=== PATIENT | male | born 1960 | race Caucasian/White ===

== ENCOUNTER → 2016-12-05 | Outpatient (CLI) | payer BC ==
[~2016-12-05] MED LIST: ACP20 PO; ASPI325T45 PO; BNC/20125 PO; BUPR-79 PO; BUPRTAB51 PO; METO25TA3 PO; MIRT45TA3 PO; NRN/600 PO; OXYC-57 PO; OXYSR/10 PO; POTA8CAP6 PO; ROSU40TA PO; SERT-234 PO
--- NOTE | 2016-12-05 14:32 | ECHOCARDIOGRAM REPORT ---
*NOTICE TO RECEIVING CONSTITUTION PARTY AGENCY This information is strictly Confidential and protected under [place] law. [place] law prohibits you from making any further disclosure of this information unless further disclosure is expressly permitted by the written consent of the person to whom it pertains or is authorized by law. A general authorization for the release of medical or other information is not sufficient for this purpose. Hospital accepts no responsibility if the information is made available to any other person, INCLUDING THE PATIENT. Interpretation Summary * Name: TEN HO Study Date: 12/05/2016 07:51 AM BP: 134/77 mmHg * Patient Location: Cardiopulmonary Lab HR: 66 * : 1960 (M/d/yyyy) Gender: Male Height: 77 in * Age: 56 yrs Ethnicity: CA Weight: 295 lb * Ordering Physician: Stanley Batista * Referring Physician: Stanley Batista * Performed By: Halley Baum RCS * * Reason For Study: Abnormal Cardiovascular Study, HTN * BSA: 2.6 m2 * -- Conclusions -- * 1. Normal left ventricular size systolic function. EF 60 -65%. No regional wall motion abnormalities. Mild concentric left ventricular hypertrophy. Type 1 diastolic dysfunction. * 2. No significant valvular abnormalities visualized. * 3. No prior study available for comparison. Procedure Details * A complete two-dimensional transthoracic echocardiogram was performed (2D, M-mode, Doppler and color flow Doppler). * Patient supine for imagining Left Ventricle * Normal left ventricular size systolic function. EF 60 -65%. No regional wall motion abnormalities. Mild concentric left ventricular hypertrophy. Type 1 diastolic dysfunction. Right Ventricle * The right ventricle is normal in size and function. * The right ventricular systolic function is normal as assessed by tricuspid annular plane systolic excursion (TAPSE) (normal >1.5 cm). Atria * The left atrial size is normal. * Right atrial size is normal. * There is no evidence of atrial septal defect, but resolution does not allow assessment for a patent foramen ovale. Mitral Valve * The mitral valve is grossly normal. * There is no mitral valve stenosis. * There is trace mitral regurgitation. Tricuspid Valve * The tricuspid valve is not well visualized. * There is no tricuspid stenosis. * Significant tricuspid regurgitation is absent. Aortic Valve * The aortic valve is trileaflet. * No hemodynamically significant valvular aortic stenosis. * There is no significant aortic regurgitation. Pulmonic Valve * The pulmonary valve is inadequately visualized, but the Doppler data is adequate for interpretation. * There is no pulmonic valvular stenosis. * There is no significant pulmonary regurgitation. Great Vessels * The aortic root is normal size. * Ascending aorta of normal dimension Pericardium/Pleural * There is no pericardial effusion. Great Vessels * IVC normal in size. MMode 2D Measurements and Calculations IVSd 1.2 cm IVSs 1.3 cm LVIDd 5.1 cm LVIDs 3.6 cm LVPWd 1.2 cm LVPWs 1.5 cm IVS/LVPW 1.1 FS 29.7 % EDV(Teich) 125.9 ml ESV(Teich) 54.9 ml EF(Teich) 56.4 % EDV(cubed) 135.6 ml ESV(cubed) 47.2 ml EF(cubed) 65.2 % % IVS thick 7.3 % % LVPW thick 28.5 % LV mass(C)d 244.1 grams LV mass(C)dI 92.5 grams/m\S\2 LV mass(C)s 183.1 grams LV mass(C)sI 69.4 grams/m\S\2 CO(Teich) 4.6 l/min CI(Teich) 1.7 l/min/m\S\2 SV(Teich) 71.0 ml SI(Teich) 26.9 ml/m\S\2 CO(cubed) 5.7 l/min CI(cubed) 2.2 l/min/m\S\2 SV(cubed) 88.4 ml SI(cubed) 33.5 ml/m\S\2 Ao root diam 3.7 cm Ao root area 10.6 cm\S\2 ACS 2.1 cm LA dimension 4.0 cm asc Aorta Diam 2.8 cm LA/Ao 1.1 LVAd ap4 34.4 cm\S\2 LVLd ap4 9.0 cm EDV(MOD-sp4) 108.0 ml LVAs ap4 18.1 cm\S\2 LVLs ap4 7.2 cm ESV(MOD-sp4) 38.0 ml EF(MOD-sp4) 64.8 % LVAd ap2 41.4 cm\S\2 LVLd ap2 10.0 cm EDV(MOD-sp2) 142.0 ml LVAs ap2 22.6 cm\S\2 LVLs ap2 7.7 cm ESV(MOD-sp2) 55.0 ml EF(MOD-sp2) 61.3 % CO(MOD-sp4) 4.6 l/min CI(MOD-sp4) 1.7 l/min/m\S\2 SV(MOD-sp4) 70.0 ml SI(MOD-sp4) 26.5 ml/m\S\2 CO(MOD-sp2) 5.7 l/min CI(MOD-sp2) 2.1 l/min/m\S\2 SV(MOD-sp2) 87.0 ml SI(MOD-sp2) 33.0 ml/m\S\2 Doppler Measurements and Calculations MV E max cliff 53.0 cm/sec MV A max cliff 54.2 cm/sec MV E/A 0.98 MV P1/2t max cliff 77.7 cm/sec MV P1/2t 48.3 msec MVA(P1/2t) 4.6 cm\S\2 MV dec slope 470.7 cm/sec\S\2 MV dec time 0.24 sec Ao V2 max 122.2 cm/sec Ao max PG 6.0 mmHg Ao max PG (full) 1.9 mmHg LV V1 max PG 4.1 mmHg LV V1 max 100.9 cm/sec TV E max cliff 58.9 cm/sec PA V2 max 127.6 cm/sec PA max PG 6.5 mmHg
== END ==
LOC: C.NUCL 07:04
PROVIDERS: ATTEND Internal Medicine Cardiovascular Disease
DX: R94.30 Abnormal result of cardiovascular function study, unspecified (principal); R07.9 Chest pain, unspecified; I10 Essential (primary) hypertension

== ENCOUNTER → 2016-12-06 | Outpatient (CLI) | payer BC ==
[~2016-12-06] MED LIST changes: +REGADENOSON 0.4 MG/5 ML SYR ONE
--- NOTE | 2016-12-06 19:46 | MYOCARDIAL PERFUSION SCAN ---
TIME: 19:21 p.m. ORDERING PHYSICIAN: Dr. Batista. PCP: Dr. English. PROCEDURE: 1. Myocardial perfusion study performed in multiple views/images. 2. Lexiscan pharmacologic stress ECG. INDICATIONS: 1. Chest pain. 2. Abnormal cardiovascular study. CONSENT: Informed written consent was obtained. PROCEDURAL DETAILS: For the stress portion of the study, Lexiscan 0.4 mg was intravenously administered over 10-15 seconds followed by a saline flush. This was followed by 31.9 mCi of technetium-99m Cardiolite injected intravenously at 13:37 p.m. on 12/06/2016. Thirty minutes following the injection, imaging of the heart was performed in multiple projections. For the rest portion of the study 10.8 mCi of technetium-99m Cardiolite was injected intravenously at 11:50 a.m. on the same day. One hour following the injection, imaging of the heart was performed in the same projections. STRESS ELECTROCARDIOGRAM: Baseline ECG demonstrated sinus rhythm at 79 beats per minute. Lexiscan ECG demonstrated no significant ST changes. There was no arrhythmia or significant pause. Dizziness and nausea was reported. No chest pain. Maximum heart rate was 116 beats per minute representing 70% maximum predicted heart rate. Resting blood pressure was 133/81 mmHg. Maximum blood pressure was 166/90 mmHg. FINDINGS: Rotating raw imaging demonstrated no significant motion artifact or lung uptake. The heart size appeared normal. Myocardial perfusion was normal without significant reversible or fixed defect to suggest ischemia or infarct. Ejection fraction was 65%. Normal wall motion was noted. No significant transient ischemic dilation. IMPRESSION: 1. Negative myocardial perfusion study for ischemia or infarct. 2. Normal left ventricular systolic function with an ejection fraction of 65%. 3. Normal wall motion. 4. No chest pain reported. 5. No arrhythmia. 6. Nondiagnostic Lexiscan electrocardiogram.
== END | disposition home or self-care (01) ==
LOC: C.NUCL 11:34
PROVIDERS: ATTEND Internal Medicine Cardiovascular Disease
DX: E78.5 Hyperlipidemia, unspecified (principal); I10 Essential (primary) hypertension; R07.9 Chest pain, unspecified; R94.30 Abnormal result of cardiovascular function study, unspecified

== ENCOUNTER → 2017-09-19 | Outpatient (CLI) | payer BC ==
[~2017-09-19] MED LIST changes: -REGADENOSON 0.4 MG/5 ML SYR ONE
[2017-09-19 18:03] LABS: BASO % 0.8 %; BASO ABS # 0.04 K/uL (0-0.2); EOS % 2.3 %; EOS ABS # 0.11 K/uL (0-0.5); HEMATOCRIT 43.8 % (42-52); HEMOGLOBIN 14.6 g/dL (14.0-18.0); IG# 0.01 K/uL (0.00-0.02); LYMPH % 31.6 %; LYMPH ABS # 1.53 K/uL (1.2-3.4); MEAN CORPUSCULAR HGB CONC 33.3 g/dl (32-36); MEAN PLATELET VOLUME 9.6 fL (7.4-10.4); MONO ABS # 0.58 K/uL (0.11-0.59); NEUT % 53.1 %; NEUT ABS # 2.57 K/uL (1.4-6.5); PLATELET COUNT 258 K/uL (130-400); RED CELL DISTRIBUTION WIDTH CV 13.3 % (11.5-14.5); RED CELL DISTRIBUTION WIDTH SD 45.1 fL (36.4-46.3); WHITE BLOOD COUNT 4.84 K/uL (4.8-10.8)
[2017-09-19 18:08] LABS: ALBUMIN 3.7 gm/dl (3.4-5.0); ALT/SGPT 37 U/L (12-78); AST/SGOT 25 U/L (15-37); BLOOD UREA NITROGEN 16 mg/dl (7-18); CALCIUM 9.3 mg/dl (8.5-10.1); CARBON DIOXIDE 29 mmol/L (21-32); CREATININE 1.09 mg/dl (0.60-1.40); GLUCOSE 99 mg/dl (70-99); POTASSIUM 4.4 mmol/L (3.5-5.1); SODIUM 135 mmol/L (136-145)
[2017-09-19 18:13] LABS: ALKALINE PHOSPHATASE 79 U/L (45-117); CHOLESTEROL 150 mg/dl (0-200); LDL CHOLESTEROL CALCULATED 81 mg/dl; TOTAL PROTEIN 8.1 gm/dl (6.4-8.2)
== END | disposition home or self-care (01) ==
LOC: C.LABMFLN 11:19
PROVIDERS: ATTEND Family Medicine
DX: R07.9 Chest pain, unspecified (principal); E78.5 Hyperlipidemia, unspecified; I10 Essential (primary) hypertension; K21.9 Gastro-esophageal reflux disease without esophagitis

== ENCOUNTER 2024-02-25 10:28 | Observation (INO) ==
--- NOTE | 2024-01-16 12:17 | PAT Medication Instructions ---
Medication Instructions Date of Service January 16, 2024 Home Medications Medication Instructions Recorded aspirin 325 mg tablet 325 mg PO BID #60 tabs 09/28/22 Auto Titrating CPAP See Rx Instructions .Route 04/11/23 .COMPLEX #1 ea omeprazole 40 mg capsule,delayed 40 mg PO QAM #90 caps 05/25/23 release amlodipine 10 mg tablet (Norvasc) 10 mg PO DAILY #90 tabs 09/24/23 etodolac 400 mg tablet (Lodine) 400 mg PO BID #60 tabs 09/24/23 furosemide 20 mg tablet (Lasix) 40 mg (2 x 20 mg) PO DAILY #180 09/24/23 tabs losartan 100 mg tablet 100 mg PO DAILY #90 tabs 09/24/23 mupirocin 2 % topical ointment 1 applic topical BID #15 grams 09/24/23 budesonide-formoterol HFA 80 2 puff inhalation BID #10.2 grams 10/31/23 mcg-4.5 mcg/actuation aerosol inhaler (Symbicort) bupropion HCl 100 mg tablet,12 hr 100 mg PO DAILY #30 ea 10/31/23 sustained-release (Wellbutrin SR) clindamycin HCl 150 mg capsule 150 mg PO QID #40 caps 10/31/23 gabapentin 600 mg tablet 600 mg PO QID #120 tabs 11/16/23 pramipexole 0.5 mg tablet See Rx Instructions PO DAILY #45 11/16/23 tabs paroxetine HCl 40 mg tablet (Paxil) 40 mg PO DAILY #30 tabs 12/17/23 pravastatin 20 mg tablet 20 mg PO QPM #90 tabs 12/17/23 Medication List: aspirin 325 mg tablet 325 mg PO BID omeprazole 40 mg capsule,delayed release 40 mg PO QAM amlodipine 10 mg tablet (Norvasc) 10 mg PO DAILY etodolac 400 mg tablet (Lodine) 400 mg PO BID furosemide 20 mg tablet (Lasix) 40 mg (2 x 20 mg) PO DAILY losartan 100 mg tablet 100 mg PO DAILY mupirocin 2 % topical ointment 1 applic topical BID budesonide-formoterol HFA 80 mcg-4.5 mcg/actuation aerosol inhaler (Symbicort) 2 puff inhalation BID bupropion HCl 100 mg tablet,12 hr sustained-release (Wellbutrin SR) 100 mg PO DAILY gabapentin 600 mg tablet 600 mg PO QID pramipexole 0.5 mg tablet See Rx Instructions PO DAILY paroxetine HCl 40 mg tablet (Paxil) 40 mg PO DAILY pravastatin 20 mg tablet 20 mg PO QPM MEDICATION INSTRUCTIONS: Continue as directed mupirocin 2 % topical ointment 1 applic topical BID (do not use near surgical area after bathing prior to surgery) budesonide-formoterol HFA 80 mcg-4.5 mcg/actuation aerosol inhaler (Symbicort) 2 puff inhalation BID ASK your surgeon for instructions etodolac 400 mg tablet (Lodine) 400 mg PO BID ASK your prescriber and surgeon aspirin 325 mg tablet 325 mg PO BID DO NOT take the morning of surgery furosemide 20 mg tablet (Lasix) 40 mg (2 x 20 mg) PO DAILY losartan 100 mg tablet 100 mg PO DAILY Take morning of surgery With a small sip of water, OTHERWISE NOTHING TO EAT OR DRINK AFTER MIDNIGHT: paroxetine HCl 40 mg tablet (Paxil) 40 mg PO DAILY bupropion HCl 100 mg tablet,12 hr sustained-release (Wellbutrin SR) 100 mg PO DAILY omeprazole 40 mg capsule,delayed release 40 mg PO QAM amlodipine 10 mg tablet (Norvasc) 10 mg PO DAILY gabapentin 600 mg tablet 600 mg PO QID Take evening before surgery pramipexole 0.5 mg tablet See Rx Instructions PO DAILY pravastatin 20 mg tablet 20 mg PO QPM gabapentin 600 mg tablet 600 mg PO QID Other Notes If you have any questions please call us at [phone] or [phone] or [phone] or [phone]
--- NOTE | 2024-01-29 09:59 | Anesthesiology Consultation ---
Date of Service January 29, 2024 Assessment & Plan (1) Encounter for pre-operative examination: - awaiting [place] PCP pre-operative evaluation and clearance. - dyspnea with all activity and peripheral edema for several years per patient- denied change or worsening in clinic today, mild pulmonary edema noted on CXR. I spoke with DIANE Pradhan at his [place] PCP office and they will contact patient for further evaluation/management. He will ultimately need a PCP clearance-surgeon's office made aware. - difficult intubation: severely limited cervical spine extension; s/p cervical spine surgery. - spinal cord stimulator: patient plans to bring remote to hospital DOS. - facial hair: patient was advised on shaving facial hair 24+ hours from surgery. Chart Review Chart Review: Pending: Refer to Additional Notes / Consult section and Patient seen in Pre Admission Testing Teaching & Discussion Pre-Anesthesia Teaching/Discussion Notes: Instructed NPO after midnight before surgery, except medications with 15 cc of water. Medication instructions provided according to the PAT guidelines. History Surgery Operation Date: 02/25/24 08:00 Proposed Procedures p Right Total Knee Arthroplasty - Felipe Zayas DO Height/Weight Height: 6 ft 5 in Weight: 161.8 kg Allergies Allergy/AdvReac Type Severity Reaction Status Date / Time chocolate flavor Allergy Unknown Blister Verified 01/11/24 08:57 fentanyl AdvReac Intermediate PATCH ONLY Verified 10/31/23 11:13 - GI UPSET sulfamethoxazole AdvReac Intermediate nausea, Verified 10/31/23 11:13 [From Bactrim] vomiting trimethoprim [From Bactrim] AdvReac Intermediate nausea, Verified 10/31/23 11:13 vomiting oxycodone AdvReac Unknown Blister Verified 01/11/24 08:57 Medications Home Medications Medication Instructions Recorded Confirmed Last Taken aspirin 325 mg tablet 325 mg PO BID #60 tabs 09/28/22 01/11/24 Unknown Auto Titrating CPAP See Rx Instructions .Route 04/11/23 01/11/24 Unknown .COMPLEX #1 ea omeprazole 40 mg capsule,delayed 40 mg PO QAM #90 caps 05/25/23 01/11/24 Unknown release amlodipine 10 mg tablet (Norvasc) 10 mg PO DAILY #90 tabs 09/24/23 01/11/24 Unknown etodolac 400 mg tablet (Lodine) 400 mg PO BID #60 tabs 09/24/23 01/11/24 Unknown furosemide 20 mg tablet (Lasix) 40 mg (2 x 20 mg) PO DAILY #180 09/24/23 01/11/24 Unknown tabs losartan 100 mg tablet 100 mg PO DAILY #90 tabs 09/24/23 01/11/24 Unknown mupirocin 2 % topical ointment 1 applic topical BID #15 grams 09/24/23 01/11/24 Unknown budesonide-formoterol HFA 80 2 puff inhalation BID #10.2 grams 10/31/23 01/11/24 Unknown mcg-4.5 mcg/actuation aerosol inhaler (Symbicort) bupropion HCl 100 mg tablet,12 hr 100 mg PO DAILY #30 ea 10/31/23 01/11/24 Unknown sustained-release (Wellbutrin SR) pramipexole 0.5 mg tablet See Rx Instructions PO DAILY #45 11/16/23 01/11/24 Unknown tabs paroxetine HCl 40 mg tablet (Paxil) 40 mg PO DAILY #30 tabs 12/17/23 01/11/24 Unknown pravastatin 20 mg tablet 20 mg PO QPM #90 tabs 12/17/23 01/11/24 Unknown gabapentin 600 mg tablet 600 mg PO QID #120 tabs 01/16/24 Unknown Past Medical History Medical History (Updated 01/29/24 @ 10:03 by Karin Katz PA-C) Anxiety Cervical disc disease Chronic pain Depression Diverticular disease denies h/o diverticulitis Edema BLE- mild -denies change or worsening Elevated blood sugar Per PCP records GERD (gastroesophageal reflux disease) controlled, stable per pt History of COVID-19 (2020) hospitalized at [facility], low spo2, on O2 History of kidney stones (~2020) History of stomach ulcers (~2008) HTN (hypertension) controlled, stable per pt Hx of syncope (~2019) hx "yrs ago"--hypotension r/t change in BP meds; denies recurrence since adjustment Hyperlipidemia Lung nodules pt not aware if still present Migraine Mucus plug in respiratory tract (10/2023) hx per pt - reason for symbicort inhaler, no longer uses Osteoarthritis of both knees Palpitations History of- occasional w/ too much caffeine Holter monitor studies in past wnl. used to follow with [facility] cardiology but d/c from service > 2 years ago Restless leg Rheumatoid arthritis Sleep apnea CPAP-compliant SOBOE (shortness of breath on exertion) with any activity per patient ongoing 5-6 years-denies change or worsening Spinal cord stimulator status Thyroid nodule denies Patient denies h/o stroke, seizures, heart attack, heart failure, blood clots/DVTs or blood transfusions. Exercise / Class Metabolic Activity III < 4 Walking/Shop/Light housework (dyspnea with activities ongoing x 5-6 years-denies change or worsening-denies chest discomfort) Past Family History Family History Mother Ovarian cancer Anxiety Cancer Brother Drug abuse Other No family history of adverse response to anesthesia Denies family history of Prostate cancer Myocardial infarction Breast cancer Colorectal cancer Past Surgical History Surgical History (Updated 01/29/24 @ 10:05 by Karin Katz PA-C) History of arthroscopy of left knee History of back surgery lumbar, X7 History of carpal tunnel release of both wrists History of cholecystectomy History of colonoscopy History of esophagogastroduodenoscopy (EGD) with esophageal dilatation-patient reports resolution of dysphagia History of hernia surgery History of toe surgery Left great toe x 2 Hx of cervical spine surgery unsure of level, limited ROM, left/right Hx of knee surgery X6 - 4 ON RIGHT AND 2 ON LEFT Hx of thumb surgery leftX4 S/P insertion of spinal cord stimulator Past Anesthesia History No Hx of Anesthesia Complications and No Family Hx of Anesthesia Complications History of PONV No Hx of PONV and No Hx of Motion Sickness Social History Smoking Status: Never smoker Do You Dip or Chew Tobacco: No Hx Alcohol Use: Yes Alcohol type: beer alcohol intake frequency: a few times a month Hx Substance Use: No substance use type: does not use Review of Systems Patient denies chest pain, fever, chills, cough, wheezing, or palpitations. Physical Exam Vital Signs Vitals BP 129/84 P 73 TEMP 98.5 SP02 96% on RA RESP 18 Physical Patient resting comfortably in chair in no acute distress, alert and oriented, responding appropriately throughout visit Severe limited cervical extension range of motion without pain TMD < 3.5 finger breadths Mallampati Score 3 Dentition: intact, denies chipped or loose teeth, caps/crowns, implants or bridges Lungs: normal respiratory effort. Good air movement, clear throughout to auscultation, no adventitious breath sounds Cardiac: regular rate and rhythm, no murmurs noted Carotid arteries: negative bruit bilat Lab Results Anesthesia Preop Results Results Anesthesia Widget: WBC 5.33 K/ul (4.8-10.8) 01/29/24 Hgb 13.6 g/dl (14.0-18.0) L 01/29/24 Hct 40.3 % (42.0-52.0) L 01/29/24 Plt 286 K/uL (130-400) 01/29/24 Na 141 mmol/L (136-145) 01/29/24 K 4.1 mmol/L (3.5-5.1) 01/29/24 Cl 105 mmol/L (98-107) 01/29/24 CO2 29 mmol/L (21-32) 01/29/24 BUN 20 mg/dl (6-23) 01/29/24 Creat 0.97 mg/dl (0.6-1.4) 01/29/24 Glucose Level 94 mg/dl (70-99(Fasting)) 01/29/24 PT 10.4 Seconds (9.0-12.0) 01/29/24 PTT 26 Seconds (21-31) 01/29/24 INR 1.0 (0.9-1.1) 01/29/24 Blood Type A Positive 01/29/24 Antibody Screen NEGATIVE 01/29/24 Testing Electrocardiogram Date: 01/29/24 NSR, rate 72 bpm Chest X-Ray Date: 01/29/24 Cardiomegaly and mild pulmonary edema. Echocardiogram Date: 05/08/19 EF 65% No LV segmental wall motion abnormalities Borderline cLVH No significant valvular disease is present Stress Test Date: 07/09/20 Dobutamine Negative dobutamine stress echo and EKG for ischemia MPHR 85% EF 60-65% Normal LV wall motion Grade I diastolic dysfunction
--- NOTE | 2024-02-13 07:23 | History & Physical Report ---
Date of Service February 13, 2024 Assessment & Plan (1) Osteoarthritis of right knee: We will proceed with a right total knee arthroplasty. Postoperatively he will be started on aspirin for DVT prophylaxis and kept overnight in the hospital for postop medical management. He plans to go to [facility] upon discharge. History of Present Illness Chief Complaint: Osteoarthritis of the right knee. Primary Care Provider: Jacobo EnglishDO Corona is a pleasant 63-year-old male who has been dealing with a chronic increasing bilateral knee pain. He has been really struggling with his knees over the past few years. He has had multiple arthroscopies on each knee. He has been treated by Dr. Coto with [facility]. Unfortunately, his knee pain is not getting better. He is very limited now because of his knees. He has trouble driving. He has trouble getting in and out of a car, even getting into bed at night. After failing conservative treatment, he has elected proceed with a right total knee arthroplasty. Allergies Allergy/AdvReac Type Severity Reaction Status Date / Time chocolate flavor Allergy Unknown Blister Verified 02/12/24 11:24 fentanyl AdvReac Intermediate PATCH ONLY Verified 02/12/24 11:24 - GI UPSET sulfamethoxazole AdvReac Intermediate nausea, Verified 02/12/24 11:24 [From Bactrim] vomiting trimethoprim [From Bactrim] AdvReac Intermediate nausea, Verified 02/12/24 11:24 vomiting oxycodone AdvReac Unknown Blister Verified 02/12/24 11:24 Home Medications Medication Instructions Recorded Confirmed Type Auto Titrating CPAP See Rx Instructions .Route 04/11/23 02/12/24 Rx .COMPLEX #1 ea omeprazole 40 mg capsule,delayed 40 mg PO QAM #90 caps 05/25/23 02/12/24 Rx release amlodipine 10 mg tablet (Norvasc) 10 mg PO DAILY #90 tabs 09/24/23 02/12/24 Rx etodolac 400 mg tablet (Lodine) 400 mg PO BID #60 tabs 09/24/23 02/12/24 Rx furosemide 20 mg tablet (Lasix) 40 mg (2 x 20 mg) PO DAILY #180 09/24/23 02/12/24 Rx tabs losartan 100 mg tablet 100 mg PO DAILY #90 tabs 09/24/23 02/12/24 Rx budesonide-formoterol HFA 80 2 puff inhalation BID #10.2 grams 10/31/23 02/12/24 Rx mcg-4.5 mcg/actuation aerosol inhaler (Symbicort) bupropion HCl 100 mg tablet,12 hr 100 mg PO DAILY #30 ea 10/31/23 02/12/24 Rx sustained-release (Wellbutrin SR) pramipexole 0.5 mg tablet See Rx Instructions PO DAILY #45 11/16/23 02/12/24 Rx tabs paroxetine HCl 40 mg tablet (Paxil) 40 mg PO DAILY #30 tabs 12/17/23 02/12/24 Rx pravastatin 20 mg tablet 20 mg PO QPM #90 tabs 12/17/23 02/12/24 Rx gabapentin 600 mg tablet 600 mg PO QID #120 tabs 01/16/24 02/12/24 Rx aspirin 325 mg tablet 325 mg PO ONCE 02/12/24 History magnesium PO DAILY 02/12/24 02/12/24 History potassium chloride PO DAILY 02/12/24 02/12/24 History Past Med/Surg History Problem List (Updated 02/13/24 @ 07:23 by Felipe Zayas DO) Osteoarthritis of right knee Myalgia Abnormal echocardiogram Cardiomegaly Osteoarthritis of knees, bilateral Internal nasal lesion Chronic pain of both knees Restless legs Bilateral shoulder pain Joint pain Edema Thyroid nodule Depression Palpitations with increased caffeine intake Bilateral hip pain Pulmonary nodules Elevated liver function tests Psychophysiologic insomnia Claudication of both lower extremities Spinal cord stimulator status Dyspnea Cervical disc disease (Chronic) 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) GERD without esophagitis (Chronic) Hyperlipidemia (Chronic) Migraine headache (Chronic) DOLORES on CPAP (Chronic) Obesity (Chronic) Encounter for pre-operative examination (Chronic) Hypertension Medical History Elevated blood sugar Per PCP records Restless leg Mucus plug in respiratory tract (10/2023) hx per pt - reason for symbicort inhaler, no longer uses Thyroid nodule denies Hx of syncope (~2019) hx "yrs ago"--hypotension r/t change in BP meds; denies recurrence since adjustment Spinal cord stimulator status History of COVID-19 (2020) hospitalized at [facility], low spo2, on O2 Palpitations History of- occasional w/ too much caffeine Holter monitor studies in past wnl. used to follow with [facility] cardiology but d/c from service > 2 years ago Osteoarthritis of both knees Migraine Lung nodules pt not aware if still present Hyperlipidemia GERD (gastroesophageal reflux disease) controlled, stable per pt Edema BLE- mild -denies change or worsening SOBOE (shortness of breath on exertion) with any activity per patient ongoing 5-6 years-denies change or worsening Cervical disc disease Chronic pain HTN (hypertension) controlled, stable per pt Rheumatoid arthritis History of kidney stones (~2020) Diverticular disease denies h/o diverticulitis History of stomach ulcers (~2008) Depression Anxiety Sleep apnea CPAP-compliant Surgical History History of arthroscopy of left knee History of toe surgery Left great toe x 2 History of hernia surgery S/P insertion of spinal cord stimulator Hx of thumb surgery leftX4 History of carpal tunnel release of both wrists Hx of knee surgery X6 - 4 ON RIGHT AND 2 ON LEFT Hx of cervical spine surgery unsure of level, limited ROM, left/right History of back surgery lumbar, X7 History of cholecystectomy History of esophagogastroduodenoscopy (EGD) with esophageal dilatation-patient reports resolution of dysphagia History of colonoscopy Family History Mother Ovarian cancer Anxiety Cancer Brother Drug abuse Other No family history of adverse response to anesthesia Denies family history of Prostate cancer Myocardial infarction Breast cancer Colorectal cancer Social History Smoking Status: Never smoker Second Hand Exposure: No; Do You Dip or Chew Tobacco: No; Hx Alcohol Use: Yes Alcohol type: beer Hx Substance Use: No Preferred Language: Thai Communication Ability: Effective Assistant Librarian Required: No Beliefs That Will Affect Care: None marital status: Current Living Situation: Spouse current occupational status: disabled How many Children do You have: 3 Feels Safe at Home: Yes Childhood Exposure to Second-Hand Smoke: Yes Diet: regular caffeine: Yes Dental Care, Regularly: Yes Physical Activity Frequency: Does not Exercise Seatbelt Use: sometimes Sunscreen Use: No Assistive Devices: CPAP and Glasses Review of Systems All systems reviewed & are unremarkable except as noted in HPI & below. Physical Exam On physical examination of the right knee, he has a slight varus deformity. He has tenderness palpation of the distal medial femoral condyle and over the medial joint line.. Constitutional WD/WN, vitals as above Eyes PERRL, conjunctivae normal, anicteric sclerae ENMT external ear and nose normal, oropharynx normal Neck trachea midline, no thyromegaly Respiratory normal respiratory effort Cardiovascular RRR, no murmur, no edema Gastrointestinal (Abdomen) normal bowel sounds, soft, nontender, no hepatosplenomegaly Psychiatric A+Ox3, euthymic affect Results & Data Results & Data Laboratory Results . Diagnostic Findings X-rays of the right knee show advanced medial compartmental arthritis with joint space narrowing, osteophyte formation, and [id number] articulation. PG Care Time/CCT Total # of Minutes Spent Total Time Spent with Patient: Total time spent is greater than 50% in coordination of care (as documented) at patient's floor/unit and/or counseling patient: Coding Level of Care Code None Diagnoses Osteoarthritis of right knee M17.11
[~2024-02-25 10:28] MED LIST changes: -ACP20 PO; -ASPI325T45 PO; -BNC/20125 PO; +BUPIVACAINE 0.5 % 5 MG/1 ML PF 10ML VIAL ONE; -BUPR-79 PO; -BUPRTAB51 PO; +LIDOCAINE 2% 2 ML VIAL/AMP(20MG/ML) INFIL ONE; -METO25TA3 PO; +MIDAZOLAM HCL 1 MG/ML 2ML VIAL ONE; -MIRT45TA3 PO; -NRN/600 PO; +ONDANSETRON INJ 2 MG/ML 2 ML VIAL ONE; -OXYC-57 PO; -OXYSR/10 PO; -POTA8CAP6 PO; +PROPOFOL IV EMULSION 10 MG/ML 20 ML VIAL IV ONE; +ROPIVACAINE 0.5% 5 MG/ML 30 ML VIAL ONE; -ROSU40TA PO; -SERT-234 PO
--- NOTE | 2024-02-25 10:42 | History & Physical Bridge Note ---
Date of Service February 25, 2024 History & Physical Bridge Note I have examined the patient, reviewed the History & Physical and in the interval since the performance of the History & Physical I have noted the following changes of clinical significance: no changes noted
[2024-02-25] MEDS ORDERED: ATROPINE SULFATE 0.1 MG/ML 10ML SYR IV PRN (11:18)
[2024-02-25] MEDS ORDERED: ePHEDrine sulfate 50 MG/ML AMP IV PRN (11:18)
[2024-02-25] MEDS ORDERED: fentaNYL citrate PF 100 MCG/2 ML VIAL IV PRN (11:18)
[2024-02-25] MEDS: LR 500ML BOLUS, THEN 15ML/HR IV SCH (11:27)
[2024-02-25] MEDS: GABAPENTIN 300 MG CAP PO SCH (11:27)
[2024-02-25] MEDS: dexAMETHasone**PF** 10 MG/ML VIAL IV SCH (11:28)
[2024-02-25] MEDS: ACETAMINOPHEN 500 MG TAB PO SCH ×2 (11:28→15:29)
[2024-02-25] MEDS: FAMOTIDINE 20 MG TAB PO SCH (11:28)
[2024-02-25] MEDS: LR 60ML/HR IV SCH (11:28)
[2024-02-25] MEDS: TRANEXAMIC ACID 1,000 MG **IV Pre-op IV SCH (11:43)
[2024-02-25] MEDS: ceFAZolin 3000MG 3,000 MG/72.5 ML BAG IV SCH (11:53)
[2024-02-25] MEDS ORDERED: fentaNYL citrate PF 100 MCG/2 ML VIAL ONE (11:57)
[2024-02-25] MEDS ORDERED: KETAMINE HCL 10MG/ML SYR ONE (12:06)
[2024-02-25] MEDS ORDERED: HYDROmorphone INJ 2 MG/ML SYR/VIAL ONE (12:17)
[2024-02-25] MEDS: ROPIV 0.5% 246mg, Ketorolac 30mg, EPINEPHrine 0.5mg in NSS INFIL SCH (12:34)
[2024-02-25] MEDS: ORTHO JOINT ANESTHETIC ONE (12:34)
[2024-02-25] MEDS: TRANEXAMIC ACID 1,000 MG **IV Intra-op IV SCH (12:52)
[2024-02-25] MEDS ORDERED: DEXAMETHASONE SOD INJ 4 MG/ML VIAL ONE (13:01)
--- NOTE | 2024-02-25 13:50 | Operative Report ---
PG Post Operative Report Pre & Post Diagnosis Operation Date: 02/25/24 12:00 Pre-Op Diagnosis: Right Knee Osteoarthritis Post-Op Diagnosis: Right Knee Osteoarthritis I identified the patient and participated in the time-out.: Yes Procedure Operation Date: 02/25/24 12:00 Actual Procedures p Right Total Knee Arthroplasty(Right) - Felipe Zayas DO Surgeon Felipe Zayas DO Process Improvement Manager Felipe Samuel PA-C Estimated Blood Loss 30 Findings Consistent with Post-Op Diagnosis Specimens Right femoral and tibial bone Description of Procedure Implants used: I used a Alexx Persona total knee arthroplasty system with a size 11 PS femur, F tibia, 31 oval patella, and a size 12 CPS polyethylene bearing. All components were cemented in place with Biomet cement. Anuel arrived [facility] for the above procedure. He was seen in the preoperative holding area and the operative extremity was identified and signed. He was given a preoperative antibiotic, TXA, a spinal anesthetic and an adductor nerve block. He was taken back to the operating room and laid on the table in supine position. He was given basic sedation. The operative knee was then prepped and draped in sterile fashion. A timeout was done, and the patient and the operative extremity was properly identified. A midline incision was made directly over the patella. Dissection was taken down to the extensor mechanism. A medial parapatellar arthrotomy was used. The medial retinaculum was released and the fat pad was mostly excised. The knee was flexed and the ACL, PCL, and meniscus were removed. A drill was sent down the center of the femoral canal followed by an intramedullary simeon. Off that simeon a distal femoral cutting block was placed. 9 mm was resected off the distal femur at 5 of valgus. A posterior referencing AP sizing guide was then placed on the distal femur. The femur measured to be a size 11. 2 drill holes were placed in 3 of external rotation. A 4-in-1 cutting block was then impacted into place. Anterior, posterior, and chamfer cuts were then made. The proximal tibia was then exposed. An external tibial alignment guide was placed. A tibial cut guide was then anchored in place and the proximal tibia was then resected. The posterior aspect of the knee was then opened up and any additional meniscus fragments and osteophytes were removed. The tibia measured to be a size F. The tibial plate was then placed in the appropriate rotation and the tibia was drilled and punched. Trial components were then placed. I used a size 12 CPS polyethylene insert. The knee was brought through a full range of motion and felt to be stable. The peg holes for the femoral component were then drilled. The patella was then everted and 9 mm was resected off the posterior aspect of the patella. The patella measured to be a size 31 oval. 3 peg holes were then drilled. A trial patella was placed. The knee was once again brought through a full range of motion and felt to be stable. Trial components were then removed. The surrounding soft tissues were injected with 100 cc of an orthopedic pain control cocktail. All components were then cemented into place with Biomet cement. The final polyethylene insert was then snapped into place. Once cement was dry the tourniquet was deflated. Hemostas is was obtained. A dilute betadyne lavage was then done for 3 minutes. The joint was then irrigated with normal saline solution. Medial parapatellar arthrotomy was then closed with #1 Vicryl suture. The skin was closed with 2-0 Vicryl, 3-0V lock suture, and jeremy. A soft compressive dressing was placed. He was then transferred to a hospital bed and taken to the postanesthesia care unit in stable condition. He tolerated the procedure well. Felipe Samuel PA-C, was present for the entire procedure. He was critical for patient positioning, prepping, draping, retraction exposure, wound closure and application of sterile dressing. I attest to the content of the Intraoperative Record and any orders documented therein. Any exceptions are noted below.
--- NOTE | 2024-02-25 14:07 | Anesthesiology Progress Note ---
Date of Service February 25, 2024 Anesthesia Post Procedure Vital Signs Vital Signs: Temp Pulse Pulse Resp BP BP Pulse Ox 02/25/24 14:00 94 H 15 97/61 L 94 02/25/24 13:50 101/62 02/25/24 13:50 83 14 83/57 L 94 02/25/24 13:41 98.1 F 85 19 97/54 L 90 02/25/24 11:11 97.9 F 74 18 120/69 95 O2 Del Method O2 Flow Rate 02/25/24 14:00 Nasal Cannula 2 02/25/24 13:50 02/25/24 13:50 Oxymask 15 02/25/24 13:41 Oxymask 15 02/25/24 11:11 Room Air Pain Intensity Right Knee: Pain Intensity: 5 Transfer of Care Handoff Completed per policy Notes Mental Status: alert / awake / arousable and participated in evaluation Patient Amnestic to Procedure: Yes Nausea / Vomiting: adequately controlled Pain: adequately controlled Airway Patency, RR, SpO2: stable & adequate BP & HR: stable & adequate Hydration State: stable & adequate Anesthetic Complications: no major complications apparent and Pt Satisfied with anesthetic care
[2024-02-25] MEDS: ONDANSETRON INJ 2 MG/ML 2 ML VIAL IV PRN ×2 (14:14→15:12)
[2024-02-25] MEDS ORDERED: HYDROmorphone INJ 0.5 MG/0.5 ML SYR IV PRN (14:55)
[2024-02-25] MEDS ORDERED: NALOXONE HCL 0.4 MG/1 ML VIAL/CARP IV PRN (14:55)
[2024-02-25] MEDS ORDERED: bisacodyL 10 MG SUPP PR PRN (14:55)
[2024-02-25] MEDS ORDERED: METOCLOPRAMIDE HCL INJ 5 MG/ML 2 ML VIAL IV PRN (14:55)
[2024-02-25] MEDS ORDERED: MAGNESIUM HYDROXIDE SUSP 30 ML UDC PO PRN (14:55)
[2024-02-25] MEDS ORDERED: NON-FORMULARY MEDICATION (Auto Titrating Cpap misc) SCH (14:55)
[2024-02-25] MEDS ORDERED: NON-FORMULARY MEDICATION (Potassium Chloride 1 TAB) PO PRN (14:55)
[2024-02-25] MEDS: SODIUM CHLORIDE 0.9% 1,000 ML IV SCH (14:59)
--- NOTE | 2024-02-25 15:16 | XRay Report ---
XR knee RT 1 or 2V routine HISTORY: 63 years-old Male Surgical Post Op right knee arthroplasty COMPARISON: 12/18/2023 TECHNIQUE: 2 views of the right knee FINDINGS: Total joint arthroplasty with patellar resurfacing. Anterior midline skin jeremy with expected posto perative soft tissue swelling and deep tissue air. No acute fracture or dislocation. IMPRESSION: Total joint arthroplasty with expected postoperative changes. ACT 112: Negative or not required by law. The above report was generated using voice recognition software. It may contain grammatical, syntax o r spelling errors. Electronically signed by: Marvel Jones M.D. 02/25/2024 3:14 PM
[2024-02-25] MEDS: KETOROLAC 30 MG/ML VIAL IV SCH (15:28)
[2024-02-25] MEDS: traMADol HCL 50 MG TABLET PO PRN (15:58)
[2024-02-25] MEDS: PRAMIPEXOLE DIHYDROCHLO 0.5 MG TAB PO SCH (16:10)
[2024-02-25] MEDS: ceFAZolin 2000MG 2,000 MG/15 ML SYR IV SCH (19:45)
[2024-02-25] MEDS: SENNA 8.6 MG TAB PO SCH (19:47)
[2024-02-25] MEDS: GABAPENTIN 600 MG TAB PO SCH (19:48)
[2024-02-25] MEDS: PRAVASTATIN SOD 20 MG TAB PO SCH (19:48)
[2024-02-25] MEDS: ASPIRIN 81 MG ECTAB PO SCH (19:49)
[2024-02-25] MEDS: DOCUSATE SODIUM 100 MG CAP PO SCH (19:49)
[2024-02-26 03:59] VITALS: RESP 18
--- NOTE | 2024-02-26 07:03 | Orthopedic Progress Note ---
Date of Service February 26, 2024 Assessment & Plan (1) Status post right knee replacement: Overall he is doing fairly well. He is not having much pain in the right knee. He will be seen by physical therapy today for ambulation and range of motion exercises. The nursing staff can change his dressing after physical therapy. He can be discharged home later today. He will follow-up orthopedics in 2 weeks. Nhung Agee was seen and examined at bedside this morning. Overall is doing fairly well. He is not having much pain in the right knee. He has been up and ambulating to the bathroom. He has no complaints.. Review of Systems All systems reviewed & are unremarkable except as noted in HPI & below. Physical Exam On physical examination of the right knee, the leg is out full extension. He has active dorsiflexion plantarflexion of the right ankle. The dressing is clean and dry.. Results & Data Results & Data Laboratory Results . Diagnostic Findings Postoperative x-rays of the right knee show the prosthesis to be in anatomic alignment without any evidence of fracture complication, or loosening.. PG Care Time/CCT Total # of Minutes Spent Total Time Spent with Patient: Total time spent is greater than 50% in coordination of care (as documented) at patient's floor/unit and/or counseling patient: Coding Level of Care Code 83157 Post Operative Follow-Up Diagnoses Status post right knee replacement Z96.651
--- NOTE | 2024-02-26 07:08 | Discharge Summary ---
Date of Service February 26, 2024 Admission HPI (Per Admitting) Cj is a pleasant 63-year-old male who has been dealing with a chronic increasing bilateral knee pain. He has been really struggling with his knees over the past few years. He has had multiple arthroscopies on each knee. He has been treated by Dr. Coto with [facility]. Unfortunately, his knee pain is not getting better. He is very limited now because of his knees. He has trouble driving. He has trouble getting in and out of a car, even getting into bed at night. After failing conservative treatment, he has elected proceed with a right total knee arthroplasty. Admission Exam (Per Admitting) On physical examination of the right knee, he has a slight varus deformity. He has tenderness palpation of the distal medial femoral condyle and over the medial joint line.. Principal Diagnosis Same as "Discharge Diagnosis" noted below under Discharge Instructions. Discharge Exam On physical examination of the right knee, the leg is out full extension. He has active dorsiflexion plantarflexion of the right ankle. The dressing is clean and dry.. Discharge Data Procedures Performed Operation Date: 02/25/24 12:00 Actual Procedures p Right Total Knee Arthroplasty(Right) - Felipe Zayas DO Ordered Studies 02/25/24 05:00 US - OR guided needle placemen Routine Hospital Course (1) Status post right knee replacement: On February 25, [address] [facility] and underwent a right knee replacement without complication. He had a spinal anesthetic. Postoperatively he was started on aspirin for DVT prophylaxis and transferred to the general orthopedic floors. His hospital course was uneventful. On postop day #1, his vital signs were stable and his pain was well-controlled. He was able to participate well with physical therapy doing ambulation and range of motion exercises. He was then discharged home. He will follow-up with orthopedics in 2 weeks. PG Care Time/CCT Total # of Minutes Spent Total Time Spent with Patient: Total time spent is greater than 50% in coordination of care (as documented) at patient's floor/unit and/or counseling patient: Discharge Plan Discharge Items Patient Disposition: Home - Self-Care Reason For Visit: Degenerative Joint Disease Right Knee Discharge Diagnosis: Status post right knee replacement Activity: Per Instructions section Non-emergency contact: Surgeon Call non-emergency contact if: your wound has increased redness and your wound has increased drainage Follow-up/Referrals: Jacobo English DO [Primary Care Provider] - Diet: Regular Addtl Attending Provider Instructions: Activity and Therapy Recommendations: * If you are using [facility] then therapy will be provided at your home until they feel you have accomplished all of your goals. * If you are using [facility] then Physical Therapy will be provided until they feel you are ready to start Outpatient Physical Therapy. * If you are not using home therapy then Outpatient Physical Therapy should start about 3-5 days from your day of surgery. Therapy will last about 6-10 weeks * It is important not to put a pillow under your knee when you are relaxing or sleeping. It is just as important to make sure you are getting your knee perfectly straight as it is to regain your knee bend. * You were shown a series of exercises in the hospital. Do these exercises three times each day including the exercises you were shown in physical therapy. * Get up and walk several times each day. For the first four weeks, try not to stand or walk for more than one hour at a time. If you do stand or walk for more than one hour, you will not hurt anything, but your leg will likely swell. * As you feel comfortable, you may change from the walker or crutches to a cane and then to independent walking. Medications: * Narcotic You will likely be sent home from the hospital with a prescription for the narcotic pain medication that worked best throughout your stay. * Cefadroxil -take the antibiotic twice a day for 10 days to help prevent infection. * Aspirin Most patients will be required to take Aspirin 81mg twice a day for 6 weeks after surgery. This is obtained [id number] and a prescription is not necessary. * Other medications may be prescribed for specific circumstances. If you have any questions, please call the office at . * Resume previous home medications unless otherwise instructed TEDs/Elastic Stockings: The white elastic stockings help limit swelling and prevent blood clots from forming in your legs.~ The more you wear them, the more they work. Wear them for six weeks. Dressing Care: The dressing can be changed after physical therapy on postop day #1. Daily dry dressing changes for a few days, especially if the incision is still draining some. If the incision is not draining then you may leave the jeremy open to air. If there is a little bit of drainage or if the jeremy are getting stuck on your clothing then cover the incision with a dry dressing. The jeremy will be removed at your 2 week follow-up appointment. Showering: You may shower 5 days from the day of surgery as long as the incision is no longer draining. You may shower with the jeremy exposed. Let soapy water run over the jeremy and pat them dry. Do not scrub or soak the incision. Things To Watch For: * Drainage from the incision site that occurs more than one week after your surgery. * Increased redness at the incision site. * Fever above 102 degrees Fahrenheit. * Unusual chest pain or shortness of breath. * Call [facility] at with any of the above problems Follow-Up Visit: Follow-up with Dr. Zayas's PA (Felipe Samuel) 2-3 weeks after your day of surgery. He will remove your jeremy and answer any questions. If you have any additional questions or concerns, Dr Zayas is usually in the office at the same time and will be available An appointment was probably scheduled when you signed-up for surgery in the office. If you have any questions call Office Instructions: More detailed instructions as well as Frequently Asked Questions were provided in a folder by our office when you signed-up for surgery. Please review these instructions when you get home. If you have any further questions or concerns, please feel free to call the office at [phone] Pending Studies at Discharge: No Stand-Alone Forms: My [facility] [employer], Smoking Cessation Medications and DC Order Prescriptions: New cefadroxil 500 mg capsule 500 mg PO BID 10 Days Qty: 20 0RF oxycodone 15 mg tablet 15 mg PO Q8H PRN (Reason: pain) Qty: 30 0RF aspirin 81 mg Tablet,Delayed Release (Dr/Ec) 81 mg PO BID 42 Days Qty: 0 0RF Continued omeprazole 40 mg capsule,delayed release(DR/EC) 40 mg PO QAM Qty: 90 3RF pramipexole 0.5 mg tablet See Rx Instructions PO DAILY Qty: 45 2RF Rx Instructions: 1/2 at supper and 1 tab hs orally daily; pravastatin 20 mg tablet 20 mg PO QPM Qty: 90 3RF Auto Titrating CPAP Misc See Rx Instructions .ROUTE .COMPLEX Qty: 1 0RF Rx Instructions: 8 to 18 cm of water, mask fit to patient comfort, heated humidification, compliance download capabilities, [place] Home patient amlodipine [Norvasc] 10 mg tablet 10 mg PO DAILY Qty: 90 3RF etodolac [Lodine] 400 mg tablet 400 mg PO BID Qty: 60 2RF furosemide [Lasix] 20 mg tablet 40 mg PO DAILY Qty: 180 3RF losartan 100 mg tablet 100 mg PO DAILY Qty: 90 3RF bupropion HCl [Wellbutrin SR] 100 mg tablet sustained-release 12 hr 100 mg PO DAILY Qty: 30 2RF magnesium 1 tab PO DAILY potassium chloride 1 tab PO DAILY PRN (Reason: Cramps) gabapentin 600 mg tablet 1,200 mg PO BID Discontinued aspirin 325 mg tablet 325 mg PO ONCE Discharge Orders: Discharge Order (Routine); Ordered 02/26/24 Ordered By: Felipe Zayas Admission Data Admit Date/Time: 02/25/24 13:43 Attending Provider: Felipe Zayas Admit Provider: Felipe Zayas Primary Care Provider: Jacobo English
[2024-02-26 07:32] VITALS: BP 123/68; PULSE 70; TEMP 97.7; O2SAT 97
[2024-02-26] MEDS: MULTIVITAMIN TAB PO SCH (08:07)
[2024-02-26] MEDS: FUROSEMIDE 40 MG TAB PO SCH (08:07)
[2024-02-26] MEDS: buPROPion SR 100 MG TABCR PO SCH (08:07)
[2024-02-26] MEDS: amLODIPine BESYLATE 5 MG TAB PO SCH (08:07)
[2024-02-26] MEDS: dexAMETHasone 4 MG TAB PO SCH (08:07)
[2024-02-26] MEDS: LOSARTAN POTASSIUM 50 MG TAB PO SCH (08:07)
[2024-02-26] MEDS ORDERED: MAGNESIUM OXIDE 400 MG TAB PO SCH (09:00)
[2024-02-26] MEDS: MAGNESIUM OXIDE 400 MG TAB PO SCH (09:35)
[2024-02-26] MEDS ORDERED: PRAMIPEXOLE DIHYDROCHLO 0.5 MG TAB PO SCH (21:00)
== END 2024-02-26 12:50 | disposition home or self-care (01) ==
LOC: ASU 10:28 → 3E 10:28

== ENCOUNTER 2024-05-19 09:07 | Observation (INO) ==
--- NOTE | 2024-05-13 10:42 | Anesthesiology Consultation ---
Date of Service May 13, 2024 Assessment & Plan (1) Encounter for pre-operative examination: Chart Review Chart Review: Acceptable Risk for Surgery and Patient NOT seen in Pre Admission Testing CARDIOLOGY NOTE PRIOR TO FIRST TKA Patient seen by cardio 02/22/24= seen for preop CV evaluation... doing well from CV standpoint. Admits to chronic stable BEARDEN which as not progressed (attributed to deconditioning and body habitus)... patient has been working on his deck for the past 3 weeks and he is able to walk with his usual degree of exertional dyspnea. His dyspnea resolves very quickly when he stops the activity. Patient has not experienced any angina pectoris or anginal equivalent symptoms, overt signs or symptoms of heart failure, nor has he had any symptoms suggestive of dysrhythmia. Reviewed 01/29/24 S ER visit and preop CXR 01/29/24. Reviewed recent ECHO- does show severe LVH, moderately dilated RV with normal systolic function. When compared to 2017 study- RV is more dilated and better visualized. .. discussed his LVH, his blood pressure appears to be controlled today, I have asked him to continue monitoring his blood pressure at home. His RV is most likely dilated due to his sleep apnea and body habitus, however he does have normal RV systolic function.Based on his stable exertional tolerance, stable chronic dyspnea on exertion, and normal LV systolic function on recent echo -- patient is an acceptable cardiac risk for his upcoming right TKA. Patient is aware that he should take his usual dose of Amlodipine 10 mg the morning of surgery with sips of water. He is aware to hold Losartan on the morning of surgery. There is no need for further ischemic evaluation at this time. Consults Requested none History Surgery Operation Date: 05/19/24 11:55 Proposed Procedures p Left Total Knee Arthroplasty - Felipe Zayas DO Height/Weight Height: 6 ft 5 in Weight: 158.757 kg Allergies Allergy/AdvReac Type Severity Reaction Status Date / Time fentanyl AdvReac Intermediate PATCH ONLY Verified 05/12/24 15:04 - GI UPSET sulfamethoxazole AdvReac Intermediate nausea, Verified 05/12/24 15:04 [From Bactrim] vomiting trimethoprim [From Bactrim] AdvReac Intermediate nausea, Verified 05/12/24 15:04 vomiting Medications Home Medications Medication Instructions Recorded Confirmed Last Taken Auto Titrating CPAP See Rx Instructions .Route 04/11/23 04/30/24 02/25/24 00:00 .COMPLEX #1 ea pravastatin 20 mg tablet 20 mg PO QPM #90 tabs 12/17/23 05/12/24 02/24/24 20:00 potassium chloride 1 tab PO DAILY PRN Cramps 02/12/24 05/12/24 02/21/24 gabapentin 600 mg tablet 1,200 mg (2 x 600 mg) PO BID #120 03/24/24 05/12/24 Unknown tabs magnesium 1 tab PO DAILY PRN muscle cramping 04/10/24 05/12/24 Unknown omeprazole 40 mg capsule,delayed 40 mg PO QAM #90 caps 04/15/24 05/12/24 Unknown release amlodipine 10 mg tablet (Norvasc) 10 mg PO QAM 05/12/24 05/12/24 Unknown aspirin 81 mg capsule 81 mg PO BID 05/12/24 05/12/24 Unknown losartan 100 mg tablet 100 mg PO QAM 05/12/24 05/12/24 Unknown mupirocin 2 % topical ointment 1 applic topical BID PRN Skin 05/12/24 05/12/24 Unknown Irritation pramipexole 0.5 mg tablet 1 mg PO HS 05/12/24 05/12/24 Unknown torsemide 10 mg tablet 20 mg PO QAM 05/12/24 05/12/24 Unknown Past Medical History Medical History Cardiomegaly f/u preop w/mn cardio 02/22/24 LVH (left ventricular hypertrophy) f/u preop w/mn cardio 02/22/24 Multiple allergies Rash and nonspecific skin eruption found to have blisters on his face, had recent allergy testing and will be completing further testing upcoming, "dr feels he may have an autoimmune diso rder, possibly lupus causing the rash and blisters on his face">as of 05/12/24, "face is clear currently" Seasonal rhinitis Elevated blood sugar Per PCP records Restless leg Mucus plug in respiratory tract (10/2023) hx per pt - reason for symbicort inhaler, no longer uses Thyroid nodule denies Hx of syncope (~2019) hx "yrs ago"--hypotension r/t change in BP meds; denies recurrence since adjustment Spinal cord stimulator status History of COVID-19 (2020) hospitalized at [facility], low spo2, on O2 Palpitations History of- occasional w/ too much caffeine Holter monitor studies in past wnl. used to follow with [facility] cardiology but d/c from service > 2 years ago Osteoarthritis of both knees Migraine Lung nodules pt not aware if still present Hyperlipidemia GERD (gastroesophageal reflux disease) controlled, stable per pt Edema BLE- mild -denies change or worsening SOBOE (shortness of breath on exertion) with any activity per patient ongoing 5-6 years-denies change or worsening Cervical disc disease Chronic pain HTN (hypertension) controlled, stable per pt Rheumatoid arthritis History of kidney stones (~2020) Diverticular disease denies h/o diverticulitis History of stomach ulcers (~2008) Depression Anxiety Sleep apnea CPAP-compliant Past Family History Family History Mother Ovarian cancer Anxiety Cancer Brother Drug abuse Other No family history of adverse response to anesthesia Denies family history of Prostate cancer Myocardial infarction Breast cancer Colorectal cancer Past Surgical History Surgical History History of total right knee replacement 02/2024 History of arthroscopy of left knee History of toe surgery Left great toe x 2 History of hernia surgery S/P insertion of spinal cord stimulator Hx of thumb surgery leftX4 History of carpal tunnel release of both wrists Hx of knee surgery X6 - 4 ON RIGHT AND 2 ON LEFT Hx of cervical spine surgery unsure of level, limited ROM, left/right History of back surgery lumbar, X7 History of cholecystectomy History of esophagogastroduodenoscopy (EGD) with esophageal dilatation-patient reports resolution of dysphagia History of colonoscopy Right TKA 02/25/24 at [facility]. Adductor canal block and general (LMA #5). GENERAL 2/2 PATIENT HAS SPINAL CORD STIMULATOR. Social History Smoking Status: Never smoker Do You Dip or Chew Tobacco: No Hx Alcohol Use: Yes Alcohol type: beer alcohol intake frequency: a few times a month Hx Substance Use: No substance use type: does not use Testing Laboratory Results Laboratory Tests 04/10/24 04/28/24 10:17 11:37 WBC 5.66 Hgb 14.0 Hct 42.7 Plt Count 333 PT 10.5 INR 1.0 APTT 28 Sodium 138 Potassium 3.9 Chloride 101 Carbon Dioxide 29 BUN 15 Creatinine 0.97 Glucose 117 H Electrocardiogram Date: 01/29/24 HR 72. NSR. Normal ECG. Other Testing - echocardiogram 02/08/24 EF 60-65% No LV regional wall motion abnormalities Severe cLVH Moderately dilated RV Mild RA dilation
--- NOTE | 2024-05-15 09:26 | History & Physical Report ---
Date of Service May 15, 2024 Assessment & Plan (1) Osteoarthritis of left knee: We will proceed with a left total knee arthroplasty. Postoperatively he will be started on aspirin for DVT prophylaxis and kept overnight in the hospital for postop medical management. He plans to use energy physical therapy upon discharge. History of Present Illness Chief Complaint: Osteoarthritis of the left knee. Primary Care Provider: Jacobo English DO Cj is a pleasant 64-year-old male who I did a right knee replacement on 3 months ago. He is doing very well with that. Unfortunately struggling with his left knee. X-rays and clinical examination been diagnostic for advanced arthritis of his left knee. After failing conservative treatment, he has elected to proceed with a left total knee arthroplasty.. Allergies Allergy/AdvReac Type Severity Reaction Status Date / Time fentanyl AdvReac Intermediate PATCH ONLY Verified 05/12/24 15:04 - GI UPSET sulfamethoxazole AdvReac Intermediate nausea, Verified 05/12/24 15:04 [From Bactrim] vomiting trimethoprim [From Bactrim] AdvReac Intermediate nausea, Verified 05/12/24 15:04 vomiting Home Medications Medication Instructions Recorded Confirmed Type Auto Titrating CPAP See Rx Instructions .Route 04/11/23 04/30/24 Rx .COMPLEX #1 ea pravastatin 20 mg tablet 20 mg PO QPM #90 tabs 12/17/23 05/12/24 Rx potassium chloride 1 tab PO DAILY PRN Cramps 02/12/24 05/12/24 History gabapentin 600 mg tablet 1,200 mg (2 x 600 mg) PO BID #120 03/24/24 05/12/24 Rx tabs magnesium 1 tab PO DAILY PRN muscle cramping 04/10/24 05/12/24 History omeprazole 40 mg capsule,delayed 40 mg PO QAM #90 caps 04/15/24 05/12/24 Rx release amlodipine 10 mg tablet (Norvasc) 10 mg PO QAM 05/12/24 05/12/24 History aspirin 81 mg capsule 81 mg PO BID 05/12/24 05/12/24 History losartan 100 mg tablet 100 mg PO QAM 05/12/24 05/12/24 History mupirocin 2 % topical ointment 1 applic topical BID PRN Skin 05/12/24 05/12/24 History Irritation pramipexole 0.5 mg tablet 1 mg PO HS 05/12/24 05/12/24 History torsemide 10 mg tablet 20 mg PO QAM 05/12/24 05/12/24 History Past Med/Surg History Problem List Seasonal rhinitis Recurrent infections Dry skin dermatitis Contact dermatitis Rash and nonspecific skin eruption Multiple allergies Osteoarthritis of left knee Status post right knee replacement (~02/2024) LVH (left ventricular hypertrophy) Osteoarthritis of right knee Myalgia Abnormal echocardiogram Cardiomegaly Osteoarthritis of knees, bilateral Internal nasal lesion Chronic pain of both knees Restless legs Bilateral shoulder pain Joint pain Edema Thyroid nodule Depression Palpitations with increased caffeine intake Bilateral hip pain Pulmonary nodules Elevated liver function tests Psychophysiologic insomnia Claudication of both lower extremities Spinal cord stimulator status Dyspnea Cervical disc disease (Chronic) 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) GERD without esophagitis (Chronic) Hyperlipidemia (Chronic) Migraine headache (Chronic) DOLORES on CPAP (Chronic) Obesity (Chronic) Encounter for pre-operative examination (Chronic) Hypertension Medical History Cardiomegaly f/u preop w/mn cardio 02/22/24 LVH (left ventricular hypertrophy) f/u preop w/mn cardio 02/22/24 Multiple allergies Rash and nonspecific skin eruption found to have blisters on his face, had recent allergy testing and will be completing further testing upcoming, "dr feels he may have an autoimmune disorder, possibly lupus causing the rash and blisters on his face">as of 05/12/24, "face is clear currently" Seasonal rhinitis Elevated blood sugar Per PCP records Restless leg Mucus plug in respiratory tract (10/2023) hx per pt - reason for symbicort inhaler, no longer uses Thyroid nodule denies Hx of syncope (~2019) hx "yrs ago"--hypotension r/t change in BP meds; denies recurrence since adjustment Spinal cord stimulator status History of COVID-19 (2020) hospitalized at [facility], low spo2, on O2 Palpitations History of- occasional w/ too much caffeine Holter monitor studies in past wnl. used to follow with [facility] cardiology but d/c from service > 2 years ago Osteoarthritis of both knees Migraine Lung nodules pt not aware if still present Hyperlipidemia GERD (gastroesophageal reflux disease) controlled, stable per pt Edema BLE- mild -denies change or worsening SOBOE (shortness of breath on exertion) with any activity per patient ongoing 5-6 years-denies change or worsening Cervical disc disease Chronic pain HTN (hypertension) controlled, stable per pt Rheumatoid arthritis History of kidney stones (~2020) Diverticular disease denies h/o diverticulitis History of stomach ulcers (~2008) Depression Anxiety Sleep apnea CPAP-compliant Surgical History History of total right knee replacement 02/2024 History of arthroscopy of left knee History of toe surgery Left great toe x 2 History of hernia surgery S/P insertion of spinal cord stimulator Hx of thumb surgery leftX4 History of carpal tunnel release of both wrists Hx of knee surgery X6 - 4 ON RIGHT AND 2 ON LEFT Hx of cervical spine surgery unsure of level, limited ROM, left/right History of back surgery lumbar, X7 History of cholecystectomy History of esophagogastroduodenoscopy (EGD) with esophageal dilatation-patient reports resolution of dysphagia History of colonoscopy Family History Mother Ovarian cancer Anxiety Cancer Brother Drug abuse Other No family history of adverse response to anesthesia Denies family history of Prostate cancer Myocardial infarction Breast cancer Colorectal cancer Social History Smoking Status: Never smoker Second Hand Exposure: No; Do You Dip or Chew Tobacco: No; Tobacco Cessation Education Requested by Patient: No Hx Alcohol Use: Yes Alcohol type: beer Hx Substance Use: No Preferred Language: [place] Communication Ability: Effective Machine Cementer And Folder Required: No Beliefs That Will Affect Care: None marital status: Current Living Situation: Spouse current occupational status: disabled How many Children do You have: 3 Other Information That Helps Us Care for You: No Feels Safe at Home: Yes Safety Concerns: Feels Safe At This Time Childhood Exposure to Second-Hand Smoke: Yes Diet: regular caffeine: Yes Dental Care, Regularly: Yes Physical Activity Frequency: Does not Exercise Seatbelt Use: sometimes Sunscreen Use: No Assistive Devices: CPAP and Glasses Review of Systems All systems reviewed & are unremarkable except as noted in HPI & below. Physical Exam Physical examination of the left knee shows a slight varus deformity. He is range of motion from 5 to 115 degrees. No instability.. Constitutional WD/WN, vitals as above Eyes PERRL, conjunctivae normal, anicteric sclerae ENMT external ear and nose normal, oropharynx normal Neck trachea midline, no thyromegaly Respiratory normal respiratory effort Cardiovascular RRR, no murmur, no edema Gastrointestinal (Abdomen) normal bowel sounds, soft, nontender, no hepatosplenomegaly Psychiatric A+Ox3, euthymic affect Results & Data Results & Data Laboratory Results . Diagnostic Findings X-rays of the left knee show advanced osteoarthritis with joint space narrowing, osteophyte formation, and [id number] articulation. PG Care Time/CCT Total # of Minutes Spent Total Time Spent with Patient: Total time spent is greater than 50% in coordination of care (as documented) at patient's floor/unit and/or counseling patient: Coding Level of Care Code None Diagnoses Osteoarthritis of left knee M17.12
[~2024-05-19 09:07] MED LIST changes: -BUPIVACAINE 0.5 % 5 MG/1 ML PF 10ML VIAL ONE; -LIDOCAINE 2% 2 ML VIAL/AMP(20MG/ML) INFIL ONE; -MIDAZOLAM HCL 1 MG/ML 2ML VIAL ONE; -ONDANSETRON INJ 2 MG/ML 2 ML VIAL ONE; -PROPOFOL IV EMULSION 10 MG/ML 20 ML VIAL IV ONE
[2024-05-19] MEDS ORDERED: MIDAZOLAM HCL 1 MG/ML 2ML VIAL ONE (09:47)
[2024-05-19] MEDS: LR 15ML/HR IV SCH (09:58)
[2024-05-19] MEDS: ACETAMINOPHEN 500 MG TAB PO SCH ×2 (09:58→15:49)
[2024-05-19] MEDS: FAMOTIDINE 20 MG TAB PO SCH (09:59)
[2024-05-19] MEDS: GABAPENTIN 600 MG DOSE PO SCH (09:59)
[2024-05-19] MEDS: dexAMETHasone**PF** 10 MG/ML VIAL IV SCH (09:59)
[2024-05-19] MEDS: LR 60ML/HR IV SCH (10:00)
--- NOTE | 2024-05-19 10:11 | History & Physical Bridge Note ---
Date of Service May 19, 2024 History & Physical Bridge Note I have examined the patient, reviewed the History & Physical and in the interval since the performance of the History & Physical I have noted the following changes of clinical significance: no changes noted
[2024-05-19] MEDS ORDERED: ONDANSETRON INJ 2 MG/ML 2 ML VIAL IV PRN (10:28)
[2024-05-19] MEDS ORDERED: ATROPINE SULFATE 0.1 MG/ML 10ML SYR IV PRN (10:28)
[2024-05-19] MEDS ORDERED: PROMETHAZINE HCL 6.25 MG in SODIUM CHLORIDE 0.9% 50 ML IV PRN (10:28)
[2024-05-19] MEDS ORDERED: LIDOCAINE 2% 2 ML VIAL/AMP(20MG/ML) INFIL ONE (10:40)
[2024-05-19] MEDS ORDERED: fentaNYL citrate PF 100 MCG/2 ML VIAL ONE ×2 (10:40→11:45)
[2024-05-19] MEDS ORDERED: PROPOFOL IV EMULSION 10 MG/ML 20 ML VIAL IV ONE ×2 (10:40)
[2024-05-19] MEDS ORDERED: ROCURONIUM BROMIDE 10 MG/ML 5 ML VIAL IV ONE ×2 (10:40→11:35)
[2024-05-19] MEDS: TRANEXAMIC ACID 1,000 MG **IV Pre-op IV SCH (11:07)
[2024-05-19] MEDS: ceFAZolin 3000MG 3,000 MG/72.5 ML BAG IV SCH (11:18)
[2024-05-19] MEDS ORDERED: DEXAMETHASONE SOD INJ 4 MG/ML VIAL ONE (11:46)
[2024-05-19] MEDS: ORTHO JOINT ANESTHETIC ONE (12:01)
[2024-05-19] MEDS: ROPIV 0.5% 246mg, Ketorolac 30mg, EPINEPHrine 0.5mg in NSS INFIL SCH (12:32)
[2024-05-19] MEDS ORDERED: SUGAMMADEX SODIUM 200 MG/2 ML VIAL IV ONE (12:33)
[2024-05-19] MEDS: TRANEXAMIC ACID 1,000 MG **IV Intra-op IV SCH (12:37)
--- NOTE | 2024-05-19 12:44 | Operative Report ---
PG Post Operative Report Pre & Post Diagnosis Operation Date: 05/19/24 11:00 Pre-Op Diagnosis: Osteoarthritis of left knee Post-Op Diagnosis: Osteoarthritis of left knee I identified the patient and participated in the time-out.: Yes Procedure Operation Date: 05/19/24 11:00 Actual Procedures p Left Total Knee Arthroplasty(Left) - Felipe Zayas DO Surgeon Felipe Zayas DO Hotbed Transfer Operator Felipe Samuel PA-C Estimated Blood Loss 30 Findings Consistent with Post-Op Diagnosis Specimens Left femoral tibial bone Description of Procedure Implants used: I used a Alexx Persona total knee arthroplasty system with a size 11 standard PS femur, F tibia, 34 oval patella, and a size 12 CPS polyethylene bearing. All components were cemented in place with Biomet cement. Cj bryan [facility] for the above procedure. He was seen in the preoperative holding area and the operative extremity was identified and signed. He was given a preoperative antibiotic, TXA,and an adductor nerve block. He was taken back to the operating room and laid on the table in supine position. He was given general anesthesia. The operative knee was then prepped and draped in sterile fashion. A timeout was done, and the patient and the operative extremity was properly identified. A midline incision was made directly over the patella. Dissection was taken down to the extensor mechanism. A medial parapatellar arthrotomy was used. The medial retinaculum was released and the fat pad was mostly excised. The knee w as flexed and the ACL, PCL, and meniscus were removed. A drill was sent down the center of the femoral canal followed by an intramedullary simeon. Off that simeon a distal femoral cutting block was placed. 9 mm was resected off the distal femur at 5 of valgus. A posterior referencing AP sizing guide was then placed on the distal femur. The femur measured to be a size 11. 2 drill holes were placed in 3 of external rotation. A 4-in-1 cutting block was then impacted into place. Anterior, posterior, and chamfer cuts were then made. The proximal tibia was then exposed. An external tibial alignment guide was placed. A tibial cut guide was then anchored in place and the proximal tibia was then resected. The posterior aspect of the knee was then opened up and any additional meniscus fragments and osteophytes were removed. The tibia measured to be a size F. The tibial plate was then placed in the appropriate rotation and the tibia was drilled and punched. Trial components were then placed. I used a size 12 CPS polyethylene insert. The knee was brought through a full range of motion and felt to be stable. The peg holes for the femoral component were then drilled. The patella was then everted and 9 mm was resected off the posterior aspect of the patella. The patella measured to be a size 34 oval. 3 peg holes were then drilled. A trial patella was placed. The knee was once again brought through a full range of motion and felt to be stable. Trial components were then removed. The surrounding soft tissues were injected with 100 cc of an orthopedic pain control cocktail. All components were then cemented into place with Biomet cement. The final polyethylene insert was then snapped into place. Once cement was dry the tourniquet was deflated. Hemostasis was obtained. A dilute betadyne lavage was then done for 3 minutes. The joint was then irrigated with normal saline solution. The medial parapatellar arthrotomy was then closed with #1 Vicryl suture. The skin was closed with 2-0 Vicryl, 3-0V lock suture, and jeremy. A soft compressive dressing was placed. He was then transferred to a hospital bed and taken to the postanesthesia care unit in stable condition. He tolerated the procedure well. Felipe Samuel PA-C, was present for the entire procedure. He was critical for patient positioning, prepping, draping, retraction exposure, wound closure and application of sterile dressing. I attest to the content of the Intraoperative Record and any orders documented therein. Any exceptions are noted below.
--- NOTE | 2024-05-19 13:27 | Anesthesiology Progress Note ---
Date of Service May 19, 2024 Anesthesia Post Procedure Vital Signs Vital Signs: Temp Pulse Resp BP Pulse Ox O2 Del Method O2 Flow Rate 05/19/24 13:20 82 21 136/73 98 Oxymask 4 05/19/24 13:14 36.8 C 93 H 23 124/75 94 Oxymask 4 05/19/24 09:37 36.6 C 59 L 22 141/85 H 94 Room Air Transfer of Care Handoff Completed per policy Notes Mental Status: alert / awake / arousable Patient Amnestic to Procedure: Yes Nausea / Vomiting: adequately controlled Pain: adequately controlled Airway Patency, RR, SpO2: stable & adequate BP & HR: stable & adequate Hydration State: stable & adequate Neuraxial Anesthesia: was administered and sensory block is resolving Anesthetic Complications: no major complications apparent
[2024-05-19] MEDS: HYDROmorphone INJ 1 MG/ML SYRINGE IV PRN (13:41)
[2024-05-19] MEDS: KETOROLAC 30 MG/ML VIAL IV PRN (13:44)
[2024-05-19] MEDS ORDERED: MUPIROCIN 2% OINT 22 GM TUBE TOP PRN (14:29)
[2024-05-19] MEDS ORDERED: METOCLOPRAMIDE HCL INJ 5 MG/ML 2 ML VIAL IV PRN (14:29)
[2024-05-19] MEDS ORDERED: NON-FORMULARY MEDICATION (Potassium Chloride 1 TAB) PO PRN (14:29)
[2024-05-19] MEDS ORDERED: HYDROmorphone INJ 0.5 MG/0.5 ML SYR IV PRN (14:29)
[2024-05-19] MEDS ORDERED: NALOXONE HCL 0.4 MG/1 ML VIAL/CARP IV PRN (14:29)
[2024-05-19] MEDS ORDERED: bisacodyL 10 MG SUPP PR PRN (14:29)
[2024-05-19] MEDS ORDERED: MAGNESIUM HYDROXIDE SUSP 30 ML UDC PO PRN (14:29)
[2024-05-19] MEDS ORDERED: NON-FORMULARY MEDICATION (Auto Titrating Cpap misc) SCH (14:29)
--- NOTE | 2024-05-19 14:35 | XRay Report ---
XR knee LT 1 or 2V routine CLINICAL HISTORY: Surgical Post Op TECHNIQUE: 2 views of the left knee were obtained. Comparison: Comparison is made to knee radiographs 04/09/2024 FINDINGS: Patient is status post total knee arthroplasty with expected postsurgical changes including soft tiss ue swelling and subcutaneous emphysema. No periarticular lucency or hardware fracture is seen. IMPRESSION: Expected postoperative appearance status post placement of total knee arthroplasty. ACT 112: Negative or not required by law. Electronically signed by: Jay Hidalgo M.D. 05/19/2024 2:33 PM
[2024-05-19] MEDS: SODIUM CHLORIDE 0.9% 1,000 ML IV SCH (14:49)
[2024-05-19] MEDS: oxyCODONE HCL IR 5 MG TAB (IMMEDIATE RELEASE) PO PRN (15:19)
[2024-05-19] MEDS: ONDANSETRON INJ 2 MG/ML 2 ML VIAL IV PRN (15:20)
[2024-05-19] MEDS: ceFAZolin 2000MG 2,000 MG/15 ML SYR IV SCH (18:29)
[2024-05-19] MEDS: KETOROLAC 30 MG/ML VIAL IV SCH (19:23)
[2024-05-19 19:27] VITALS: RESP 16
[2024-05-19] MEDS: DOCUSATE SODIUM 100 MG CAP PO SCH (20:03)
[2024-05-19] MEDS: ASPIRIN 81 MG ECTAB PO SCH (20:03)
[2024-05-19] MEDS: PRAVASTATIN SOD 20 MG TAB PO SCH (20:03)
[2024-05-19] MEDS: GABAPENTIN 600 MG TAB PO SCH (20:03)
[2024-05-19] MEDS: SENNA 8.6 MG TAB PO SCH (20:03)
[2024-05-19] MEDS: PRAMIPEXOLE DIHYDROCHLO 0.5 MG TAB PO SCH (20:05)
[2024-05-20 03:46] VITALS: BP 139/72; PULSE 69; TEMP 98.1; O2SAT 96
--- NOTE | 2024-05-20 06:58 | Orthopedic Progress Note ---
Date of Service May 20, 2024 Assessment & Plan (1) Status post left knee replacement: Overall he is doing very well. He is not having much pain in the left knee. He will be seen by physical therapy today for ambulation and range of motion exercises. The nursing staff can change his dressing after physical therapy. He is on aspirin for DVT prophylaxis. He can be discharged home later today. He will follow with orthopedics in 2 weeks. Nhung Corona was seen and examined at bedside this morning. Overall is doing fairly well. He is not having much pain in the left knee. He has been up and ambulating to the bathroom. He has no complaints.. Review of Systems All systems reviewed & are unremarkable except as noted in HPI & below. Physical Exam On physical examination of the left knee, the dressing has a little bit of serous sanguinous drainage. His leg is out full extension. He has active dorsiflexion plantarflexion of his left ankle.. Results & Data Results & Data Laboratory Results . Diagnostic Findings Postoperative x-rays of the left knee show the prosthesis to be in anatomic alignment without any evidence of fracture complication, or loosening.. PG Care Time/CCT Total # of Minutes Spent Total Time Spent with Patient: Total time spent is greater than 50% in coordination of care (as documented) at patient's floor/unit and/or counseling patient: Coding Level of Care Code 66352 Post Operative Follow-Up Diagnoses Status post left knee replacement Z96.652
--- NOTE | 2024-05-20 06:59 | Discharge Summary ---
Date of Service May 20, 2024 Admission HPI (Per Admitting) Cj is a pleasant 64-year-old male who I did a right knee replacement on 3 months ago. He is doing very well with that. Unfortunately struggling with his left knee. X-rays and clinical examination been diagnostic for advanced arthritis of his left knee. After failing conservative treatment, he has elected to proceed with a left total knee arthroplasty.. Admission Exam (Per Admitting) Physical examination of the left knee shows a slight varus deformity. He is range of motion from 5 to 115 degrees. No instability.. Principal Diagnosis Same as "Discharge Diagnosis" noted below under Discharge Instructions. Discharge Exam On physical examination of the left knee, the dressing has a little bit of serous sanguinous drainage. His leg is out full extension. He has active dorsiflexion plantarflexion of his left ankle.. Discharge Data Procedures Performed Operation Date: 05/19/24 11:00 Actual Procedures p Left Total Knee Arthroplasty(Left) - Felipe Zayas DO Ordered Studies 05/19/24 05:00 US - OR guided needle placemen Routine Hospital Course (1) Status post left knee replacement: On May 19, 2024 Cj arrived at [facility] and underwent a left knee replacement without complication. He had a general anesthetic. Po stoperatively he was started on aspirin for DVT prophylaxis and transferred to the general orthopedic floors. His hospital course was uneventful. On postop day #1, his vital signs were stable and his pain was well-controlled. He was able to participate well with physical therapy doing ambulation and range of motion exercises. He was then discharged to home. He will follow with orthopedics in 2 weeks. PG Care Time/CCT Total # of Minutes Spent Total Time Spent with Patient: Total time spent is greater than 50% in coordination of care (as documented) at patient's floor/unit and/or counseling patient: Discharge Plan Discharge Items Patient Disposition: Home - Self-Care Reason For Visit: Left Knee Arthritis Discharge Diagnosis: Left knee replacement Activity: Per Instructions section Non-emergency contact: Surgeon Call non-emergency contact if: your wound has increased redness and your wound has increased drainage Follow-up/Referrals: Jacobo English DO [Primary Care Provider] - Diet: Regular Addtl Attending Provider Instructions: Activity and Therapy Recommendations: * If you are using [facility] then therapy will be provided at your home until they feel you have accomplished all of your goals. * If you are using [facility] then Physical Therapy will be provided until they feel you are ready to start Outpatient Physical Therapy. * If you are not using home therapy then Outpatient Physical Therapy should start about 3-5 days from your day of surgery. Therapy will last about 6-10 weeks * It is important not to put a pillow under your knee when you are relaxing or sleeping. It is just as important to make sure you are getting your knee perfectly straight as it is to regain your knee bend. * You were shown a series of exercises in the hospital. Do these exercises three times each day including the exercises you were shown in physical therapy. * Get up and walk several times each day. For the first four weeks, try not to stand or walk for more than one hour at a time. If you do stand or walk for more than one hour, you will not hurt anything, but your leg will likely swell. * As you feel comfortable, you may change from the walker or crutches to a cane and then to independent walking. Medications: * Narcotic You will likely be sent home from the hospital with a prescription for the narcotic pain medication that worked best throughout your stay. * Cefadroxil -take the antibiotic twice a day for 10 days to help prevent infection. * Aspirin Most patients will be required to take Aspirin 81mg twice a day for 6 weeks after surgery. This is obtained [id number] and a prescription is not necessary. * Other medications may be prescribed for specific circumstances. If you have any questions, please call the office at . * Resume previous home medications unless otherwise instructed TEDs/Elastic Stockings: The white elastic stockings help limit swelling and prevent blood clots from forming in your legs.~ The more you wear them, the more they work. Wear them for six weeks. Dressing Care: The dressing can be changed after physical therapy on postop day #1. Daily dry dressing changes for a few days, especially if the incision is still draining some. If the incision is not draining then you may leave the jeremy open to air. If there is a little bit of drainage or if the jeremy are getting stuck on your clothing then cover the incision with a dry dressing. The jeremy will be removed at your 2 week follow-up appointment. Showering: You may shower 5 days from the day of surgery as long as the incision is no longer draining. You may shower with the jeremy exposed. Let soapy water run over the jeremy and pat them dry. Do not scrub or soak the incision. Diet: You may resume your previous diet. Things To Watch For: * Drainage from the incision site that occurs more than one week after your surgery. * Increased redness at the incision site. * Fever above 102 degrees Fahrenheit. * Unusual chest pain or shortness of breath. * Call [facility] at with any of the above problems Follow-Up Visit: Follow-up with Dr. Zayas's PA (Felipe Samuel) 2-3 weeks after your day of surgery. He will remove your jeremy and answer any questions. If you have any additional questions or concerns, Dr Zayas is usually in the office at the same time and will be available An appointment was probably scheduled when you signed-up for surgery in the office. If you have any questions call Office Instructions: More detailed instructions as well as Frequently Asked Questions were provided in a folder by our office when you signed-up for surgery. Please review these instructions when you get home. If you have any further questions or concerns, please feel free to call the office at [phone] Pending Studies at Discharge: No Stand-Alone Forms: [facility], Smoking Cessation Medications and DC Order Prescriptions: New oxycodone 5 mg Tablet 5 mg PO Q4H PRN (Reason: pain) Qty: 30 0RF cefadroxil 500 mg capsule 500 mg PO BID 10 Days Qty: 20 0RF Continued pravastatin 20 mg tablet 20 mg PO QPM Qty: 90 3RF gabapentin 600 mg tablet 1,200 mg PO BID Qty: 120 1RF omeprazole 40 mg capsule,delayed release(DR/EC) 40 mg PO QAM Qty: 90 3RF Auto Titrating CPAP Misc See Rx Instructions .ROUTE .COMPLEX Qty: 1 0RF Rx Instructions: 8 to 18 cm of water, mask fit to patient comfort, heated humidification, compliance download capabilities, [facility] potassium chloride 1 tab PO DAILY PRN (Reason: Cramps) magnesium 1 tab PO DAILY PRN (Reason: muscle cramping) torsemide 10 mg tablet 20 mg PO QAM pramipexole 0.5 mg tablet 1 mg PO HS amlodipine [Norvasc] 10 mg tablet 10 mg PO QAM mupirocin 2 % ointment 1 applic topical BID PRN (Reason: Skin Irritation) losartan 100 mg tablet 100 mg PO QAM aspirin 81 mg Capsule 81 mg PO BID 42 Days Qty: 0 0RF Discharge Orders: Discharge Order (Routine); Ordered 05/20/24 Ordered By: Felipe Zayas Admission Data Admit Date/Time: 05/19/24 13:15 Attending Provider: Felipe Zayas Admit Provider: Felipe Zayas Primary Care Provider: Jacobo English
[2024-05-20] MEDS: amLODIPine BESYLATE 5 MG TAB PO SCH (08:11)
[2024-05-20] MEDS: MULTIVITAMIN TAB PO SCH (08:11)
[2024-05-20] MEDS: dexAMETHasone 4 MG TAB PO SCH (08:11)
[2024-05-20] MEDS: TORSEMIDE 20 MG TAB PO SCH (08:12)
[2024-05-20] MEDS: LOSARTAN POTASSIUM 50 MG TAB PO SCH (08:12)
== END 2024-05-20 10:53 | disposition home or self-care (01) ==
LOC: ASU 09:07 → 3N 09:07

== ENCOUNTER 2024-06-06 15:01 | Observation (INO) ==
--- NOTE | 2024-06-06 15:15 | Emergency Department Note ---
Impression & Plan Wound dehiscence ED Provider Note NAME: TEN HO AGE: 64 SEX: M : 1960 ARRIVES VIA: Walk-In INFORMANT: Patient ED PROVIDER(S): JOANN Rock, Je Sears MD CHIEF COMPLAINT: Wound dehiscence HISTORY OF PRESENT ILLNESS: This 64-year-old male patient presents to the emergency department via private vehicle for evaluation of wound dehiscence from a total knee two weeks prior. The patient states the total knee was performed by Dr. Zayas, and he has noticed increased draining and bleeding since that time. He states the jeremy and the knee were removed on Sunday, however 4-[address] still left in place. He reports he was putting a bed together upstairs, earlier in the day and the knee began to bleed significantly. He denies fevers, increased pain in the knee, significant swelling, or loss of sensation. REVIEW OF SYSTEMS: A review of systems was performed with positives and pertinent negatives listed in the history of present illness. All other systems were reviewed and are negative. ALLERGIES: See below MEDICATIONS: See below PMH: See below PHYSICAL EXAM: VITALS: Vitals are noted on the nurse's note and reviewed by myself. Vital signs stable. GENERAL: 64-year-old male, in no acute distress, nondiaphoretic, well-developed well-nourished. SKIN: postsurgical site left anterior knee with erythema, edema and serosanguineous drainage present. MUSCULOSKELETAL: Limited ROM with flexion of the knee due to surgical incision, and slight edema. Slight TTP over anterior patella, DP pulse intact, full sensation to dull and sharp. NEURO: Patient was alert and oriented to person place and time. No focal neurological deficits. MEDICAL DECISION MAKING: The patient is a pleasant 64-year-old male who arrives to the emergency department for evaluation of the above-stated complaint. Upon arrival, I contacted Dr. Zayas via [place] text, who stated he would admit the patient to his services for washout and revision the following morning. A saline lock was established, CBC, CMP were obtained. CBC shows no leukocytosis, with a stable anemia, CMP is unremarkable. Dr. Zayas recommended IV Ancef which was provided to the patient. Case management was contacted regarding patient admission. Dr. Zayas accepted the patient to his service. Please refer to his documentation for further patient workup and care. DIFFERENTIAL DIAGNOSIS: Cellulitis, abscess, MRSA infection, DVT, postoperative infection, seroma, hematoma, as well as other pathologies. The chart was completed utilizing [employer] Speech voice recognition software. Grammatical errors, random word insertions, pronoun errors, and incomplete sentences are an occasional consequence of this system due to software limitations, ambient noise, and hardware issues. Any formal questions or concerns about the content, text, or information contained within the body of this dictation should be directly addressed to the physician for clarification. Past Med/Surg History Problem List (Updated 06/07/24 @ 23:48 by JOANN Yee) Wound dehiscence (Acute) Seasonal rhinitis Recurrent infections Dry skin dermatitis Contact dermatitis Rash and nonspecific skin eruption Multiple allergies Osteoarthritis of left knee Status post right knee replacement (~02/2024) LVH (left ventricular hypertrophy) Osteoarthritis of right knee Myalgia Abnormal echocardiogram Cardiomegaly Osteoarthritis of knees, bilateral Internal nasal lesion Chronic pain of both knees Restless legs Bilateral shoulder pain Joint pain Edema Thyroid nodule Depression Palpitations with increased caffeine intake Bilateral hip pain Pulmonary nodules Elevated liver function tests Psychophysiologic insomnia Claudication of both lower extremities Spinal cord stimulator status Dyspnea Cervical disc disease (Chronic) 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) GERD without esophagitis (Chronic) Hyperlipidemia (Chronic) Migraine headache (Chronic) DOLORES on CPAP (Chronic) Obesity (Chronic) Encounter for pre-operative examination (Chronic) Hypertension Medical History Prediabetes Cardiomegaly f/u preop w/mn cardio 02/22/24 LVH (left ventricular hypertrophy) f/u preop w/mn cardio 02/22/24 Multiple allergies Rash and nonspecific skin eruption found to have blisters on his face, had recent allergy testing and will be completing further testing upcoming, "dr feels he may have an autoimmune disorder, possibly lupus causing the rash and blisters on his face">as of 05/12/24, "face is clear currently" Seasonal rhinitis Elevated blood sugar Per PCP records Restless leg Mucus plug in respiratory tract (10/2023) hx per pt - reason for symbicort inhaler, no longer uses Thyroid nodule denies Hx of syncope (~2019) hx "yrs ago"--hypotension r/t change in BP meds; denies recurrence since adjustment Spinal cord stimulator status History of COVID-19 (2020) hospitalized at [facility], low spo2, on O2 Palpitations History of- occasional w/ too much caffeine Holter monitor studies in past wnl. used to follow with [facility] cardiology but d/c from service > 2 years ago Osteoarthritis of both knees Migraine Lung nodules pt not aware if still present Hyperlipidemia GERD (gastroesophageal reflux disease) controlled, stable per pt Edema BLE- mild -denies change or worsening SOBOE (shortness of breath on exertion) with any activity per patient ongoing 5-6 years-denies change or worsening Cervical disc disease Chronic pain HTN (hypertension) controlled, stable per pt Rheumatoid arthritis History of kidney stones (~2020) Diverticular disease denies h/o diverticulitis History of stomach ulcers (~2008) Depression Anxiety Sleep apnea CPAP-compliant Surgical History Status post left knee replacement (~04/2024) History of total right knee replacement 02/2024 History of arthroscopy of left knee History of toe surgery Left great toe x 2 History of hernia surgery S/P insertion of spinal cord stimulator Hx of thumb surgery leftX4 History of carpal tunnel release of both wrists Hx of knee surgery X6 - 4 ON RIGHT AND 2 ON LEFT Hx of cervical spine surgery unsure of level, limited ROM, left/right History of back surgery lumbar, X7 History of cholecystectomy History of esophagogastroduodenoscopy (EGD) with esophageal dilatation-patient reports resolution of dysphagia History of colonoscopy Family History Mother Ovarian cancer Anxiety Cancer Brother Drug abuse Other No family history of adverse response to anesthesia Denies family history of Prostate cancer Myocardial infarction Breast cancer Colorectal cancer Social History Smoking Status: Never smoker Second Hand Exposure: No; Do You Dip or Chew Tobacco: No; Hx Alcohol Use: No Hx Substance Use: No Preferred Language: Japanese Communication Ability: Effective Contour Stitcher Required: No Beliefs That Will Affect Care: None marital status: Current Living Situation: Spouse current occupational status: disabled How many Children do You have: 3 Feels Safe at Home: No Is there a partner from a previous relationship who is making you feel unsafe now?: No Childhood Exposure to Second-Hand Smoke: Yes Diet: regular caffeine: Yes Dental Care, Regularly: Yes Physical Activity Frequency: Does not Exercise Seatbelt Use: sometimes Sunscreen Use: No Assistive Devices: Walker Allergies Allergies Allergy/AdvReac Type Severity Reaction Status Date / Time adhesive tape Allergy Blister Verified 06/04/24 09:03 fentanyl AdvReac Intermediate PATCH ONLY Verified 06/04/24 09:03 - GI UPSET sulfamethoxazole AdvReac Intermediate nausea, Verified 06/04/24 09:03 [From Bactrim] vomiting trimethoprim [From Bactrim] AdvReac Intermediate nausea, Verified 06/04/24 09:03 vomiting Home Meds Home Medications Medication Instructions Recorded Confirmed amlodipine 10 mg tablet (Norvasc) 10 mg PO QAM 05/12/24 06/06/24 losartan 100 mg tablet 100 mg PO QAM 05/12/24 06/06/24 mupirocin 2 % topical ointment 1 applic topical BID PRN Skin 05/12/24 05/19/24 Irritation pramipexole 0.5 mg tablet 1 mg PO BID 05/12/24 06/06/24 torsemide 10 mg tablet 20 mg PO QAM 05/12/24 06/06/24 Previous Rx's Medication Instructions Recorded Auto Titrating CPAP See Rx Instructions .Route 04/11/23 .COMPLEX #1 ea pravastatin 20 mg tablet 20 mg PO QPM #90 tabs 12/17/23 omeprazole 40 mg capsule,delayed 40 mg PO QAM #90 caps 04/15/24 release aspirin 81 mg capsule 81 mg PO BID 42 days #0 caps 05/20/24 gabapentin 600 mg tablet 1,200 mg (2 x 600 mg) PO BID #120 05/28/24 tabs oxycodone 10 mg tablet 10 mg PO Q6H PRN pain #60 tabs 05/30/24 clindamycin HCl 150 mg capsule 150 mg PO QID #40 caps 06/04/24 docusate sodium 100 mg capsule 100 mg PO BID #60 caps 06/04/24 (Colace) famotidine 20 mg tablet (Pepcid) 20 mg PO PM #30 tabs 06/04/24 cefadroxil 500 mg capsule 500 mg PO BID 10 days #20 caps 06/07/24 Results & Data (ED) Vital Signs Vital Signs - 24 hr 06/06/24 15:03 Temperature 37 C Temperature Source Temporal Artery Scan Pulse Rate 79 Respiratory Rate 18 Blood Pressure 126/71 Blood Pressure Mean 89 Pulse Oximetry 98 Oxygen Delivery Method Room Air Sepsis Recent Fever Within 48 Hours No Sepsis New/Unexplained Change in Mental Status No Sepsis Action Taken by Nursing No Action Required Home Medications Current Medication List: was personally reviewed by me Laboratory Data Attestation: I reviewed the patient's lab results. 06/06/24 15:50 06/06/24 15:50 Administered Medications Discontinued Medications Amlodipine Besylate (Amlodipine Besylate 5 Mg Tab) 10 mg PO QAM [facility] Stop: 07/07/24 08:59 Last Admin: 06/07/24 10:45 Dose: 10 mg Documented By: RONALD Aspirin (Aspirin 81 Mg Ectab) 81 mg PO BID [facility] Stop: 07/06/24 20:59 Last Admin: 06/07/24 11:12 Dose: 81 mg Documented By: Admin: 06/06/24 20:47 Dose: 81 mg Documented By: SHABANA Bupivacaine HCl/Epinephrine Bitart (Bupivacaine/Epinephrine 0.5% Mpf 1:200,000 30 Ml Vial) Confirm Administered Dose 30 ml .ROUTE .STK-MED ONE Stop: 06/07/24 08:12 Last Admin: 06/07/24 09:17 Dose: 15 ml Documented By: BRIANNE Famotidine (Famotidine 20 Mg Tab) 20 mg PO PM ISAAK Stop: 07/06/24 20:59 Last Admin: 06/06/24 20:47 Dose: 20 mg Documented By: SHABANA Gabapentin (Gabapentin 600 Mg Tab) 1,200 mg PO BID ISAAK Stop: 07/06/24 20:59 Last Admin: 06/07/24 10:44 Dose: 1,200 mg Documented By: Admin: 06/06/24 20:47 Dose: 1,200 mg Documented By: SHABANA Hydromorphone HCl (Hydromorphone Inj 1 Mg/Ml Syringe) 0.25 mg IV Q5M PRN PRN Reason: PACU Use Only-Pain Stop: 06/07/24 16:49 Last Admin: 06/07/24 09:44 Dose: 0.25 mg Documented By: Admin: 06/07/24 09:39 Dose: 0.25 mg Documented By: Admin: 06/07/24 09:34 Dose: 0.25 mg Documented By: Admin: 06/07/24 09:29 Dose: 0.25 mg Documented By: SED Hydromorphone HCl (Hydromorphone Inj 0.5 Mg/0.5 Ml Syr) 0.25 mg IV Q5M PRN PRN Reason: Pain Stop: 06/07/24 16:00 Last Admin: 06/07/24 10:10 Dose: 0.25 mg Documented By: Admin: 06/07/24 10:04 Dose: 0.25 mg Documented By: Admin: 06/07/24 09:59 Dose: 0.25 mg Documented By: Admin: 06/07/24 09:54 Dose: 0.25 mg Documented By: STEVEN Hydromorphone HCl (Hydromorphone Inj 1 Mg/Ml Syringe) Confirm Administered Dose 1 mg .ROUTE .STK-MED ONE Stop: 06/07/24 09:53 Last Admin: 06/07/24 09:56 Dose: Not Given Documented By: STEVEN Cefazolin Sodium 3,000 mg/ (Dextrose) 72.5 mls @ 145 mls/hr IV NOW STA Stop: 06/06/24 16:11 Last Infusion: 06/06/24 16:38 Dose: Infused Documented By: Admin: 06/06/24 16:06 Dose: 145 mls/hr Documented By: TARAH Sodium Chloride (Nss) 1,000 mls @ 80 mls/hr IV .[id number] ISAAK Stop: 07/06/24 20:14 Last Infusion: 06/07/24 13:09 Dose: Infused Documented By: Admin: 06/06/24 20:46 Dose: 80 mls/hr Documented By: SHABANA Cefazolin Sodium 3,000 mg/ (Dextrose) 72.5 mls @ 145 mls/hr IV NOW STA Stop: 06/07/24 08:57 Last Infusion: 06/07/24 11:08 Dose: Infused Documented By: Admin: 06/07/24 08:44 Dose: 145 mls/hr Documented By: GABRIEL Acetaminophen (Ofirmev) 1,000 mg in 100 mls @ 400 mls/hr IV NOW STA Stop: 06/07/24 10:01 Last Infusion: 06/07/24 11:08 Dose: Infused Documented By: Admin: 06/07/24 09:55 Dose: 400 mls/hr Documented By: STEVEN Losartan Potassium (Losartan Potassium 50 Mg Tab) 100 mg PO QAM ISAAK Stop: 07/07/24 08:59 Last Admin: 06/07/24 10:45 Dose: 100 mg Documented By: RONALD Oxycodone HCl (Oxycodone Hcl Ir 5 Mg Tab (Immediate Release)) 10 mg PO Q6H PRN PRN Reason: pain Stop: 06/20/24 20:14 Last Admin: 06/07/24 03:05 Dose: 10 mg Documented By: Admin: 06/06/24 20:48 Dose: 10 mg Documented By: SHABANA Pravastatin Sodium (Pravastatin Sod 20 Mg Tab) 20 mg PO QPM ISAAK Stop: 07/06/24 20:59 Last Admin: 06/06/24 20:47 Dose: 20 mg Documented By: SHABANA Torsemide (Torsemide 20 Mg Tab) 20 mg PO QAM ISAAK Stop: 07/07/24 08:59 Last Admin: 06/07/24 10:44 Dose: 20 mg Documented By: RONALD Discharge Plan Visit Data Chief Complaint: Wound Dehiscence Stated Complaint: LT KNEE SURG/RECENT, INCISION OPENING UP ED Provider: Je Sears ED Midlevel Provider: Paulina Browning Discharge Problem: Wound dehiscence Patient Disposition: Admitted As Inpatient Discharge Instructions Interventions: ED Discharge Assessment Last Done: 06/06/24 19:53
[2024-06-06] MEDS: ceFAZolin 3,000 MG in DEXTROSE 5% 50 ML IV STA (16:06)
[2024-06-06 16:21] LABS: Basophils # (auto) 0.08 K/uL (0.00-0.20); Basophils % (auto) 1.3 %; Eosinophils # (auto) 0.16 K/uL (0.00-0.50); Eosinophils % (auto) 2.5 %; Hematocrit (blood only) 39.7 % (42.0-52.0); Hemoglobin 13.3 g/dl (14.0-18.0); Immature Granulocytes # (auto) 0.02 K/uL (0.01-0.20); Immature Granulocytes % (auto) 0.3 %; Lymphocytes # (auto) 1.53 K/uL (1.20-3.40); Lymphocytes % (auto) 24.3 %; Mean Corpuscular Hemoglobin 29.8 pg (25.0-34.0); Mean Corpuscular Hgb Conc 33.5 g/dL (32.0-36.0); Mean Platelet Volume 9.3 fL (9.4-12.4); Monocytes # (auto) 0.58 K/uL (0.11-0.59); Monocytes % (auto) 9.2 %; Neutrophils # (auto) 3.93 K/uL (1.40-6.50); Neutrophils % (auto) 62.4 %; Platelet Count 364 K/uL (130-400); RDW Coefficient of Variation 13.2 % (11.5-14.5); RDW Standard Deviation 42.9 fL (36.4-46.3); Red Blood Count 4.46 M/uL (4.70-6.10)
[2024-06-06 16:39] LABS: Albumin Globulin Ratio 1.1 (0.9-2); Albumin Level 4.7 gm/dl (3.4-5.0); BUN Creatinine Ratio 12.5 (10-20); Creatinine Clr Calc Pharmacy 75.3 ml/min; Globulin 4.1 gm/dl (2.5-4.0); Potassium 3.9 mmol/L (3.5-5.1); Total Protein 8.8 gm/dl (6.0-8.3)
[2024-06-06] MEDS ORDERED: NON-FORMULARY MEDICATION (Auto Titrating Cpap misc) SCH (20:15)
[2024-06-06] MEDS: SODIUM CHLORIDE 0.9% 1,000 ML IV SCH (20:46)
[2024-06-06] MEDS: PRAVASTATIN SOD 20 MG TAB PO SCH (20:47)
[2024-06-06] MEDS: GABAPENTIN 600 MG TAB PO SCH (20:47)
[2024-06-06] MEDS: ASPIRIN 81 MG ECTAB PO SCH (20:47)
[2024-06-06] MEDS: FAMOTIDINE 20 MG TAB PO SCH (20:47)
[2024-06-06] MEDS: oxyCODONE HCL IR 5 MG TAB (IMMEDIATE RELEASE) PO PRN (20:48)
--- NOTE | 2024-06-07 07:35 | Anesthesiology Consultation ---
Date of Service June 07, 2024 Assessment & Plan (1) Encounter for pre-operative examination: Chart Review Chart Review: Acceptable Risk for Surgery History Surgery Operation Date: 06/07/24 08:40 Proposed Procedures p Wound Revision Knee Left - Felipe Zayas, Height/Weight Height: 6 ft 5 in Weight: 158.757 kg Allergies Allergy/AdvReac Type Severity Reaction Status Date / Time adhesive tape Allergy Blister Verified 06/04/24 09:03 fentanyl AdvReac Intermediate PATCH ONLY Verified 06/04/24 09:03 - GI UPSET sulfamethoxazole AdvReac Intermediate nausea, Verified 06/04/24 09:03 [From Bactrim] vomiting trimethoprim [From Bactrim] AdvReac Intermediate nausea, Verified 06/04/24 09:03 vomiting Medications Home Medications Medication Instructions Recorded Confirmed Last Taken Auto Titrating CPAP See Rx Instructions .Route 04/11/23 05/19/24 05/18/24 20:00 .COMPLEX #1 ea pravastatin 20 mg tablet 20 mg PO QPM #90 tabs 12/17/23 06/06/24 05/18/24 19:00 omeprazole 40 mg capsule,delayed 40 mg PO QAM #90 caps 04/15/24 06/06/24 Unknown release amlodipine 10 mg tablet (Norvasc) 10 mg PO QAM 05/12/24 06/06/24 05/19/24 08:00 losartan 100 mg tablet 100 mg PO QAM 05/12/24 06/06/24 05/18/24 08:00 mupirocin 2 % topical ointment 1 applic topical BID PRN Skin 05/12/24 05/19/24 05/18/24 08:00 Irritation pramipexole 0.5 mg tablet 1 mg PO BID 05/12/24 06/06/24 05/18/24 19:00 torsemide 10 mg tablet 20 mg PO QAM 05/12/24 06/06/24 05/18/24 08:00 aspirin 81 mg capsule 81 mg PO BID 42 days #0 caps 05/20/24 06/06/24 Unknown gabapentin 600 mg tablet 1,200 mg (2 x 600 mg) PO BID #120 05/28/24 06/06/24 Unknown tabs oxycodone 10 mg tablet 10 mg PO Q6H PRN pain #60 tabs 05/30/24 06/06/24 Unknown clindamycin HCl 150 mg capsule 150 mg PO QID #40 caps 06/04/24 06/06/24 Unknown docusate sodium 100 mg capsule 100 mg PO BID #60 caps 06/04/24 06/06/24 Unknown (Colace) famotidine 20 mg tablet (Pepcid) 20 mg PO PM #30 tabs 06/04/24 06/06/24 Unknown Active Medications Generic Name Dose Route Start Last Admin Trade Name Freq PRN Reason Stop Dose Admin Aspirin 81 mg 06/06/24 21:00 06/06/24 20:47 Aspirin 81 Mg Ectab PO 07/06/24 20:59 81 mg BID ISAAK Administration Famotidine 20 mg 06/06/24 21:00 06/06/24 20:47 Famotidine 20 Mg Tab PO 07/06/24 20:59 20 mg PM ISAAK Administration Gabapentin 1,200 mg 06/06/24 21:00 06/06/24 20:47 Gabapentin 600 Mg Tab PO 07/06/24 20:59 1,200 mg BID ISAAK Administration Sodium Chloride 1,000 mls @ 80 mls/hr 06/06/24 20:15 06/06/24 20:46 Nss IV 07/06/24 20:14 80 mls/hr .[id number] ISAAK Administration Oxycodone HCl 10 mg 06/06/24 20:15 06/07/24 03:05 Oxycodone Hcl Ir 5 Mg Tab (Immediate Release) PO 06/20/24 20:14 10 mg Q6H PRN Administration pain Pravastatin Sodium 20 mg 06/06/24 21:00 06/06/24 20:47 Pravastatin Sod 20 Mg Tab PO 07/06/24 20:59 20 mg QPM ISAAK Administration NPO Date Last Intake of Fluids: 06/06/24 Time Last Intake of Fluids: 21:23 Date Last Intake of Solids: 06/06/24 Time Last Intake of Solids: 21:24 Past Medical History Medical History (Updated 06/07/24 @ 07:33 by Cj Schulz MD) Prediabetes Cardiomegaly f/u preop w/mn cardio 02/22/24 LVH (left ventricular hypertrophy) f/u preop w/mn cardio 02/22/24 Multiple allergies Rash and nonspecific skin eruption found to have blisters on his face, had recent allergy testing and will be completing further testing upcoming, "dr feels he may have an autoimmune disorder, possibly lupus causing the rash and blisters on his face">as of 05/12/24, "face is clear currently" Seasonal rhinitis Elevated blood sugar Per PCP records Restless leg Mucus plug in respiratory tract (10/2023) hx per pt - reason for symbicort inhaler, no longer uses Thyroid nodule denies Hx of syncope (~2019) hx "yrs ago"--hypotension r/t change in BP meds; denies recurrence since adjustment Spinal cord stimulator status History of COVID-19 (2020) hospitalized at [facility], low spo2, on O2 Palpitations History of- occasional w/ too much caffeine Holter monitor studies in past wnl. used to follow with [facility] cardiology but d/c from service > 2 years ago Osteoarthritis of both knees Migraine Lung nodules pt not aware if still present Hyperlipidemia GERD (gastroesophageal reflux disease) controlled, stable per pt Edema BLE- mild -denies change or worsening SOBOE (shortness of breath on exertion) with any activity per patient ongoing 5-6 years-denies change or worsening Cervical disc disease Chronic pain HTN (hypertension) controlled, stable per pt Rheumatoid arthritis History of kidney stones (~2020) Diverticular disease denies h/o diverticulitis History of stomach ulcers (~2008) Depression Anxiety Sleep apnea CPAP-compliant Past Family History Family History Mother Ovarian cancer Anxiety Cancer Brother Drug abuse Other No family history of adverse response to anesthesia Denies family history of Prostate cancer Myocardial infarction Breast cancer Colorectal cancer Past Surgical History Surgical History (Updated 06/07/24 @ 07:31 by Cj Schulz MD) Status post left knee replacement (~04/2024) History of total right knee replacement 02/2024 History of arthroscopy of left knee History of toe surgery Left great toe x 2 History of hernia surgery S/P insertion of spinal cord stimulator Hx of thumb surgery leftX4 History of carpal tunnel release of both wrists Hx of knee surgery X6 - 4 ON RIGHT AND 2 ON LEFT Hx of cervical spine surgery unsure of level, limited ROM, left/right History of back surgery lumbar, X7 History of cholecystectomy History of esophagogastroduodenoscopy (EGD) with esophageal dilatation-patient reports resolution of dysphagia History of colonoscopy Social History Smoking Status: Never smoker Do You Dip or Chew Tobacco: No Hx Alcohol Use: No Alcohol type: beer alcohol intake frequency: a few times a month Hx Substance Use: No substance use type: does not use Physical Exam Vital Signs Last Vital Signs Temp 36.4 C L 06/07/24 07:02 Pulse 68 06/07/24 07:02 Resp 16 06/07/24 07:02 BP 142/75 H 06/07/24 07:02 Pulse Ox 95 06/07/24 07:02 O2 Del Method Room Air 06/07/24 07:02 Testing Laboratory Results 06/06/24 15:50 06/06/24 15:50 creatinine normally runs around 1.0 Electrocardiogram Date: 01/29/24 Findings: + NSR @ (72) Echocardiogram Date: 02/08/24 EF: 60-65% LV Function: normal Valvular Disease: + no significant valvular disease RV dilated but with normal function
--- NOTE | 2024-06-07 08:10 | History & Physical Report ---
Date of Service June 07, 2024 Assessment & Plan (1) Wound dehiscence: I went over the diagnosis and treatment options with him at bedside. I recommended a wound revision with a superficial I&D in the operating room. He elected to proceed. He understands the risk, benefits, and alternatives to procedure. Time was spent scribing the procedure and post expectations. He will likely be discharged home after the procedure. History of Present Illness Chief Complaint: Wound dehiscence of the left knee . Primary Care Provider: Jacobo English DO Cj is a pleasant 64-year-old male who underwent a left knee replacement 18 days ago. He has been having a little bit more soreness in this knee than the knee he had replaced less than a year ago. He has been noticing some drainage from the front of the incision as well. He came to our office and a few of the jeremy were left in but he continues to have some serous drainage from the knee. There has not been any purulent discharge. He came to the emergency room with persistent drainage from the knee and a failure of a small portion of the incision to fully heal. He was admitted to the orthopedic service for wound revision. Allergies Allergy/AdvReac Type Severity Reaction Status Date / Time adhesive tape Allergy Blister Verified 06/04/24 09:03 fentanyl AdvReac Intermediate PATCH ONLY Verified 06/04/24 09:03 - GI UPSET sulfamethoxazole AdvReac Intermediate nausea, Verified 06/04/24 09:03 [From Bactrim] vomiting trimethoprim [From Bactrim] AdvReac Intermediate nausea, Verified 06/04/24 09:03 vomiting Home Medications Medication Instructions Recorded Confirmed Type Auto Titrating CPAP See Rx Instructions .Route 04/11/23 05/19/24 Rx .COMPLEX #1 ea pravastatin 20 mg tablet 20 mg PO QPM #90 tabs 12/17/23 06/06/24 Rx omeprazole 40 mg capsule,delayed 40 mg PO QAM #90 caps 04/15/24 06/06/24 Rx release amlodipine 10 mg tablet (Norvasc) 10 mg PO QAM 05/12/24 06/06/24 History losartan 100 mg tablet 100 mg PO QAM 05/12/24 06/06/24 History mupirocin 2 % topical ointment 1 applic topical BID PRN Skin 05/12/24 05/19/24 History Irritation pramipexole 0.5 mg tablet 1 mg PO BID 05/12/24 06/06/24 History torsemide 10 mg tablet 20 mg PO QAM 05/12/24 06/06/24 History aspirin 81 mg capsule 81 mg PO BID 42 days #0 caps 05/20/24 06/06/24 Rx gabapentin 600 mg tablet 1,200 mg (2 x 600 mg) PO BID #120 05/28/24 06/06/24 Rx tabs oxycodone 10 mg tablet 10 mg PO Q6H PRN pain #60 tabs 05/30/24 06/06/24 Rx clindamycin HCl 150 mg capsule 150 mg PO QID #40 caps 06/04/24 06/06/24 Rx docusate sodium 100 mg capsule 100 mg PO BID #60 caps 06/04/24 06/06/24 Rx (Colace) famotidine 20 mg tablet (Pepcid) 20 mg PO PM #30 tabs 06/04/24 06/06/24 Rx Past Med/Surg History Problem List (Updated 06/07/24 @ 08:11 by Felipe Zayas DO) Wound dehiscence Seasonal rhinitis Recurrent infections Dry skin dermatitis Contact dermatitis Rash and nonspecific skin eruption Multiple allergies Osteoarthritis of left knee Status post right knee replacement (~02/2024) LVH (left ventricular hypertrophy) Osteoarthritis of right knee Myalgia Abnormal echocardiogram Cardiomegaly Osteoarthritis of knees, bilateral Internal nasal lesion Chronic pain of both knees Restless legs Bilateral shoulder pain Joint pain Edema Thyroid nodule Depression Palpitations with increased caffeine intake Bilateral hip pain Pulmonary nodules Elevated liver function tests Psychophysiologic insomnia Claudication of both lower extremities Spinal cord stimulator status Dyspnea Cervical disc disease (Chronic) 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) GERD without esophagitis (Chronic) Hyperlipidemia (Chronic) Migraine headache (Chronic) DOLORES on CPAP (Chronic) Obesity (Chronic) Encounter for pre-operative examination (Chronic) Hypertension Medical History Prediabetes Cardiomegaly f/u preop w/mn cardio 02/22/24 LVH (left ventricular hypertrophy) f/u preop w/mn cardio 02/22/24 Multiple allergies Rash and nonspecific skin eruption found to have blisters on his face, had recent allergy testing and will be completing further testing upcoming, " feels he may have an autoimmune disorder, possibly lupus causing the rash and blisters on his face">as of 05/12/24, "face is clear currently" Seasonal rhinitis Elevated blood sugar Per PCP records Restless leg Mucus plug in respiratory tract (10/2023) hx per pt - reason for symbicort inhaler, no longer uses Thyroid nodule denies Hx of syncope (~2019) hx "yrs ago"--hypotension r/t change in BP meds; denies recurrence since adjustment Spinal cord stimulator status History of COVID-19 (2020) hospitalized at [facility], low spo2, on O2 Palpitations History of- occasional w/ too much caffeine Holter monitor studies in past wnl. used to follow with [facility] cardiology but d/c from service > 2 years ago Osteoarthritis of both knees Migraine Lung nodules pt not aware if still present Hyperlipidemia GERD (gastroesophageal reflux disease) controlled, stable per pt Edema BLE- mild -denies change or worsening SOBOE (shortness of breath on exertion) with any activity per patient ongoing 5-6 years-denies change or worsening Cervical disc disease Chronic pain HTN (hypertension) controlled, stable per pt Rheumatoid arthritis History of kidney stones (~2020) Diverticular disease denies h/o diverticulitis History of stomach ulcers (~2008) Depression Anxiety Sleep apnea CPAP-compliant Surgical History Status post left knee replacement (~04/2024) History of total right knee replacement 02/2024 History of arthroscopy of left knee History of toe surgery Left great toe x 2 History of hernia surgery S/P insertion of spinal cord stimulator Hx of thumb surgery leftX4 History of carpal tunnel release of both wrists Hx of knee surgery X6 - 4 ON RIGHT AND 2 ON LEFT Hx of cervical spine surgery unsure of level, limited ROM, left/right History of back surgery lumbar, X7 History of cholecystectomy History of esophagogastroduodenoscopy (EGD) with esophageal dilatation-patient reports resolution of dysphagia History of colonoscopy Family History Mother Ovarian cancer Anxiety Cancer Brother Drug abuse Other No family history of adverse response to anesthesia Denies family history of Prostate cancer Myocardial infarction Breast cancer Colorectal cancer Social History (Reviewed 06/07/24 @ 08:10 by CORRINE Holman Smoking Status: Never smoker Second Hand Exposure: No; Do You Dip or Chew Tobacco: No; Hx Alcohol Use: No Hx Substance Use: No Preferred Language: Kinyarwanda Communication Ability: Effective Modeling Instructor Required: No Beliefs That Will Affect Care: None marital status: Current Living Situation: Spouse current occupational status: disabled How many Children do You have: 3 Other Information That Helps Us Care for You: No Feels Safe at Home: No Is there a partner from a previous relationship who is making you feel unsafe now?: No Any Concerns about Your Family Situation: No Would You Like to Speak to Someone About Your Situation: No Safety Concerns: Feels Safe At This Time Childhood Exposure to Second-Hand Smoke: Yes Diet: regular caffeine: Yes Dental Care, Regularly: Yes Physical Activity Frequency: Does not Exercise Seatbelt Use: sometimes Sunscreen Use: No Assistive Devices: Hospital Bed and Walker Review of Systems All systems reviewed & are unremarkable except as noted in HPI & below. Physical Exam On physical examination of the left knee, there is opening in the distal third of the left knee incision. I am able to express out a little bit of serosanguineous fluid. There is no purulent discharge. There is no cellulitis. The jeremy in this area are still in place.. Constitutional WD/WN, vitals as above Eyes PERRL, conjunctivae normal, anicteric sclerae ENMT external ear and nose normal, oropharynx normal Neck trachea midline, no thyromegaly Respiratory normal respiratory effort Cardiovascular RRR, no murmur, no edema Gastrointestinal (Abdomen) normal bowel sounds, soft, nontender, no hepatosplenomegaly Psychiatric A+Ox3, euthymic affect Results & Data Results & Data Laboratory Results . Diagnostic Findings . PG Care Time/CCT Total # of Minutes Spent Total Time Spent with Patient: Total time spent is greater than 50% in coordination of care (as documented) at patient's floor/unit and/or counseling patient: Coding Level of Care Code 25039 INT INP/OBS CARE 2/55MIN (57 - DECISION FOR SURGERY) Diagnoses Wound dehiscence T81.30XA
[2024-06-07] MEDS ORDERED: DEXAMETHASONE SOD INJ 4 MG/ML VIAL ONE (08:13)
[2024-06-07] MEDS ORDERED: ONDANSETRON INJ 2 MG/ML 2 ML VIAL ONE (08:13)
[2024-06-07] MEDS ORDERED: fentaNYL citrate PF 100 MCG/2 ML VIAL ONE ×2 (08:13→08:59)
[2024-06-07] MEDS ORDERED: PROPOFOL IV EMULSION 10 MG/ML 20 ML VIAL IV ONE (08:13)
[2024-06-07] MEDS ORDERED: MIDAZOLAM HCL 1 MG/ML 2ML VIAL ONE (08:13)
[2024-06-07] MEDS ORDERED: LIDOCAINE 2% 2 ML VIAL/AMP(20MG/ML) INFIL ONE (08:13)
[2024-06-07] MEDS: ceFAZolin 3,000 MG in DEXTROSE 5% 50 ML IV STA (08:44)
[2024-06-07] MEDS ORDERED: ONDANSETRON INJ 2 MG/ML 2 ML VIAL IV PRN (08:48)
[2024-06-07] MEDS ORDERED: ATROPINE SULFATE 0.1 MG/ML 10ML SYR IV PRN (08:48)
[2024-06-07] MEDS ORDERED: PROMETHAZINE HCL 6.25 MG in SODIUM CHLORIDE 0.9% 50 ML IV PRN (08:48)
[2024-06-07] MEDS ORDERED: ceFAZolin 330 MG/ML 1 GM VIAL ONE (08:55)
[2024-06-07] MEDS: BUPIVACAINE/EPINEPHRINE 0.5% MPF 1:200,000 30 ML VIAL ONE (09:17)
--- NOTE | 2024-06-07 09:28 | Operative Report ---
PG Post Operative Report Pre & Post Diagnosis Operation Date: 06/07/24 08:40 Pre-Op Diagnosis: Left knee Wound dehiscence Post-Op Diagnosis: Left knee Wound dehiscence with draining superficial hematoma I identified the patient and participated in the time-out.: Yes Procedure Operation Date: 06/07/24 08:40 Actual Procedures p superficial irrigation and debridement of the left knee incision with evacuation of a superficial hematoma. (Left) - Felipe Zayas DO Surgeon Felipe Zayas DO Paleontological Helper None Estimated Blood Loss 5 Findings Consistent with Post-Op Diagnosis Specimens Cultures Description of Procedure On June 07, 2024 Cj was brought down from his hospital room to the preoperative holding area. The operative extremity identified and signed. Is given a preoperative antibiotic. He is taken back to the operative room and laid on table in supine position. He was put under general anesthesia. The left knee was prepped and draped sterile fashion. A timeout was done. The patient and the operative extremity was properly identified. A few of the remaining jeremy were removed. The distal third of the incision was opened back up. I was able to evacuate a rather large hematoma from the superficial aspect. Cultures were obtained of the hematoma, however, there was no purulent discharge or any signs of infection. It did not go below the extensor mechanism. Once the hematoma was evacuated the surgical site was irrigated with a liter normal saline solution by bulb syringe. The edges of the incision were then debrided with a sharp knife. The knee was brought through a full range of motion and no additional hematoma was identified. The incision was then closed with 2-0 Vicryl and 2-0 nylon suture. He was then placed in a soft compressive dressing. He was then extubated and transferred back to hospital bed. He was taken to the postanesthesia care unit in stable condition. He tolerated the procedure well. I attest to the content of the Intraoperative Record and any orders documented therein. Any exceptions are noted below.
[2024-06-07] MEDS: HYDROmorphone INJ 1 MG/ML SYRINGE IV PRN (09:29)
--- NOTE | 2024-06-07 09:43 | Discharge Summary ---
Date of Service June 07, 2024 Admission HPI (Per Admitting) Cj is a pleasant 64-year-old male who underwent a left knee replacement 18 days ago. He has been having a little bit more soreness in this knee than the knee he had replaced less than a year ago. He has been noticing some drainage from the front of the incision as well. He came to our office and a few of the jeremy were left in but he continues to have some serous drainage from the knee. There has not been any purulent discharge. He came to the emergency room with persistent drainage from the knee and a failure of a small portion of the incision to fully heal. He was admitted to the orthopedic service for wound revision. Admission Exam (Per Admitting) On physical examination of the left knee, there is opening in the distal third of the left knee incision. I am able to express out a little bit of serosanguineous fluid. There is no purulent discharge. There is no cellulitis. The jeremy in this area are still in place.. Principal Diagnosis Same as "Discharge Diagnosis" noted below under Discharge Instructions. Discharge Data Consultations 06/06/24 15:42 ED Decision to Admit Stat Procedures Performed Operation Date: 06/07/24 08:40 Actual Procedures p Wound Revision Knee Left(Left) - Felipe Zayas DO Hospital Course (1) Wound dehiscence: On June 06, 2024 Cj arrived at [facility] emergency room with persistent bloody drainage from the inferior aspect of his knee incision. He had a left knee replacement 18 days ago. He was admitted to the orthopedic s ervice for revision and evacuation of the hematoma the following day. On June 07 he underwent an evacuation of a superficial hematoma and a closure of the incision without complication. He had a general anesthetic. Postoperatively he was placed in a soft dressing and transferred back to the orthopedic floors. Once he was awake, the nursing staff was able to walk around and he seems stable. He was then discharged to home on oral antibiotics. He will follow-up with orthopedics in 2 weeks. PG Care Time/CCT Total # of Minutes Spent Total Time Spent with Patient: Total time spent is greater than 50% in coordination of care (as documented) at patient's floor/unit and/or counseling patient: Discharge Plan Discharge Items Patient Disposition: Home - Self-Care Reason For Visit: WOUND DEHISCENCE Discharge Diagnosis: Revision left knee incision with evacuation hematoma Activity: Per Instructions section Non-emergency contact: Surgeon Call non-emergency contact if: your wound has increased redness and your wound has increased drainage Follow-up/Referrals: Jacobo English DO [Primary Care Provider] - Diet: Regular Addtl Attending Provider Instructions: ORTHOPEDIC INSTRUCTIONS Activity Recommendations: Weightbearing and activity as tolerated with the left knee Medications: Take cefadroxil twice a day for 10 days to help prevent infection. Dressing Care: You may remove the dressing after 48 hours. Sutures can be open to air as long as the incisions are not draining. If the incisions are draining or if the sutures are getting caught on your clothes then please cover the sutures with dry gauze. Change the dressings as necessary to keep the incision as dry as possible Showering: You may shower 5 days from the day of surgery as long as the incisions are not draining. Do not soak the incision. Let soapy water run over the sutures and pat them dry. Diet: You may resume your previous diet. Things To Watch For: 1. Drainage from the incision site that occurs more than one week after your surgery. 2. Increased redness at the incision site. 3. Fever above 102 degrees Fahrenheit. 4. Unusual chest pain or shortness of breath. 5. Call [facility] at with any of the above problems Follow-Up Visit: Follow-up with Dr. Zayas's PA (Felipe Samuel) 2-3 weeks after your day of surgery. He will remove your jeremy and answer any questions. If you have any additional questions or concerns, Dr Zayas is usually in the office at the same time and will be available Please call the office to set up an appointment for a time that works for you Pending Studies at Discharge: No Stand-Alone Forms: My [facility] [employer], Smoking Cessation Medications and DC Order Prescriptions: New cefadroxil 500 mg capsule 500 mg PO BID 10 Days Qty: 20 0RF Continued pravastatin 20 mg tablet 20 mg PO QPM Qty: 90 3RF omeprazole 40 mg capsule,delayed release(DR/EC) 40 mg PO QAM Qty: 90 3RF gabapentin 600 mg tablet 1,200 mg PO BID Qty: 120 1RF oxycodone 10 mg tablet 10 mg PO Q6H PRN (Reason: pain) Qty: 60 0RF Auto Titrating CPAP Misc See Rx Instructions .ROUTE .COMPLEX Qty: 1 0RF Rx Instructions: 8 to 18 cm of water, mask fit to patient comfort, heated humidification, compliance download capabilities, [place] Home patient clindamycin HCl 150 mg capsule 150 mg PO QID Qty: 40 0RF famotidine [Pepcid] 20 mg tablet 20 mg PO PM Qty: 30 2RF docusate sodium [Colace] 100 mg capsule 100 mg PO BID Qty: 60 0RF torsemide 10 mg tablet 20 mg PO QAM pramipexole 0.5 mg tablet 1 mg PO BID amlodipine [Norvasc] 10 mg tablet 10 mg PO QAM mupirocin 2 % ointment 1 applic topical BID PRN (Reason: Skin Irritation) losartan 100 mg tablet 100 mg PO QAM aspirin 81 mg Capsule 81 mg PO BID 42 Days Qty: 0 0RF Discharge Orders: Discharge Order (Routine); Ordered 06/07/24 Ordered By: Felipe Zayas Admission Data Admit Date/Time: 06/06/24 15:50 Attending Provider: Felipe Zayas Admit Provider: Felipe Zayas Primary Care Provider: Jacobo English Other Providers: Felipe Zayas
[2024-06-07] MEDS: HYDROmorphone INJ 0.5 MG/0.5 ML SYR IV PRN (09:54)
[2024-06-07] MEDS: ACETAMINOPHEN 1,000 MG/100 ML VIAL IV STA (09:55)
[2024-06-07] MEDS: HYDROmorphone INJ 1 MG/ML SYRINGE ONE (09:56)
--- NOTE | 2024-06-07 10:29 | Anesthesiology Progress Note ---
Date of Service June 07, 2024 Anesthesia Post Procedure Vital Signs Vital Signs: Temp Pulse Pulse Pulse Resp BP BP 06/07/24 10:15 36.5 C 72 13 125/74 06/07/24 10:05 80 19 138/78 06/07/24 09:55 75 12 141/76 H 06/07/24 09:45 43 L 10 L 142/75 H 06/07/24 09:35 81 13 143/79 H 06/07/24 09:26 36 C L 81 18 134/71 06/07/24 07:02 36.4 C L 68 16 06/06/24 20:10 36.7 C 67 18 06/06/24 19:50 69 16 06/06/24 15:03 37 C 79 18 126/71 BP Pulse Ox O2 Del Method O2 Flow Rate 06/07/24 10:15 98 Room Air 06/07/24 10:05 92 Room Air 06/07/24 09:55 95 Room Air 06/07/24 09:45 94 Room Air 06/07/24 09:35 97 Oxymask 5 06/07/24 09:26 97 Oxymask 9 06/07/24 07:02 142/75 H 95 Room Air 06/06/24 20:10 134/68 95 Room Air 06/06/24 19:50 131/61 96 Room Air 06/06/24 15:03 98 Room Air Pain Intensity Left Knee: Pain Intensity: 4 Transfer of Care Handoff Completed per policy Notes Mental Status: alert / awake / arousable Patient Amnestic to Procedure: Yes Nausea / Vomiting: adequately controlled Pain: adequately controlled Airway Patency, RR, SpO2: stable & adequate BP & HR: stable & adequate Hydration State: stable & adequate Anesthetic Complications: no major complications apparent
[2024-06-07] MEDS: TORSEMIDE 20 MG TAB PO SCH (10:44)
[2024-06-07] MEDS: amLODIPine BESYLATE 5 MG TAB PO SCH (10:45)
[2024-06-07] MEDS: LOSARTAN POTASSIUM 50 MG TAB PO SCH (10:45)
[2024-06-07 11:43] VITALS: RESP 16
[2024-06-07 13:43] VITALS: PULSE 75; TEMP 97.7; O2SAT 94
[2024-06-07 15:02] VITALS: BP 142/75
== END 2024-06-07 15:37 | disposition home or self-care (01) ==
LOC: 3E 15:01 → ED 15:01 → 3E 19:53